=== PATIENT | male | born 1950 | race Caucasian/White ===

== ENCOUNTER 2019-10-19 14:32 | Outpatient (CLI) | payer MEDICARE, SELFPAY ==
--- NOTE | 2019-10-19 | ECHO_ITS ---
Patient Info Name: Francisco Burden Age: 68 years : 1950 Gender: Male Ht: 72 in Wt: 235 lbs BSA: 2.36 m2 HR: 91 bpm BP: 139 / 85 mmHg Heart Rhythm: Paced Technical Quality: Good Exam Date: 10/19/2019 3:12 PM Exam Location: [facility] Patient Status: Outpatient Admit Date: 10/19/2019 Staff Ordering Physician: FelixAlexis MD Special Certificate Dictator: Dianna Goldberg RDCS Attending Provider: FelixAlexis MD Exam Type: CA echo doppler color flow Study Info Indications - hx/o ppm edema Complete two-dimensional, color flow and Doppler transthoracic echocardiogram is performed. Summary 1. Overall good left ventricular systolic function with an estimated ejection fraction of 55-60%. There was abnormal septal motion probably related to pacing artifact as well as hypokinesis of the distal septum and apex which might be related to pacing artifact as well. Normal left ventricular size. Moderate left ventricular hypertrophy is present. Grade 1 diastolic dysfunction is noted. 2. Right ventricular chamber dimension is mildly enlarged with normal systolic function. 3. Linear artifact in right ventricle suggestive of catheter(s), pacemaker lead(s), or ICD lead(s). 4. Left atrial chamber dimension is moderately enlarged. 5. Right atrial chamber dimension is mildly enlarged. 6. Mild pulmonary hypertension, estimated pulmonary arterial systolic pressure is 45 mmHg. 7. There is mild tricuspid valve regurgitation. 8. There is minimal pulmonic valve stenosis. Left Ventricle Left ventricular chamber dimension is normal. Left ventricular systolic function is normal, estimated at 55-60%. There is moderately increased left ventricular wall thickness. Left ventricular septal wall motion is abnormal with septal motion related to pacing. The left ventricular diastolic function is grade I diastolic dysfunction. Right Ventricle Right ventricular chamber dimension is mildly enlarged with normal systolic function. Right ventricular systolic function is normal. Linear artifact in right ventricle suggestive of catheter(s), pacemaker lead(s), or ICD lead(s). Left Atria Left atrial chamber dimension is moderately enlarged. Right Atria Right atrial chamber dimension is mildly enlarged. Aortic Valve The aortic valve is trileaflet. There is mild aortic valve sclerosis. There is no aortic valve stenosis. There is no aortic valve regurgitation. Pulmonic Valve The pulmonic valve is normal. There is minimal pulmonic valve stenosis. There is trace pulmonic regurgitation. Mitral Valve The mitral valve has normal leaflets. There is no mitral valve stenosis. There is trace mitral valve regurgitation. Tricuspid Valve The tricuspid valve leaflets are normal. There is no significant tricuspid valve stenosis. There is mild tricuspid valve regurgitation. Mild pulmonary hypertension, estimated pulmonary arterial systolic pressure is 45 mmHg. Pericardium/Pleural The pericardium appears normal. There is no pericardial effusion. Inferior Vena Cava Not well visualized inferior vena cava with >50% collapse upon inspiration consistent with Empty right atrial pressure, 10 mmHg. Aorta The aortic root size at the sinus of Valsalva is normal. The prox ascending aorta size is normal. Left Ventricular Outflow Tract Name Value Normal
== END 2019-10-19 14:33 | disposition home or self-care (01) ==
PROVIDERS: PCP Internal Medicine; Visit Provider Internal Medicine
DX: R60.9 Edema, unspecified (principal); I51.7 Cardiomegaly; R93.1 Abnormal findings on diagnostic imaging of heart and coronary circulation
CPT/HCPCS: 93306

== ENCOUNTER 2020-12-27 08:09 | Observation (INO) | payer MEDICARE, SELFPAY ==
[2020-12-27] VITALS (15 sets, daily range): BP systolic 104–149; BP diastolic 51–86; PULSE 62–81; RESP 14–21; TEMP 36.3–36.7; O2SAT 96–100; BMI 32.1
--- NOTE | ~2020-12-27 | XR_ITS ---
EXAMINATION: XR chest 1V portable EXAM DATE: 12/27/2020 08:48 INDICATION: Stroke protocol, Transient Alteration Of Awareness . TECHNIQUE: Portable AP frontal chest x-ray was obtained. Comparison is made to prior examination from 08/31/2012. FINDINGS: There is a dual lead pacemaker/AICD seen with leads projecting over the expected locations of the right atrial appendage and right ventricle. Mild cardiomegaly. No confluent consolidation, pne umothorax or pleural effusion suspected. There are bony degenerative changes. IMPRESSION: Cardiomegaly. Reviewed, dictated and finalized at location B. IMPRESSION: Cardiomegaly.
--- NOTE | ~2020-12-27 | US_ITS ---
EXAMINATION: US venous doppler LE EXAM DATE: 12/28/2020 15:56 INDICATION: Bilateral leg edema. TECHNIQUE: Multiple grayscale, color flow and Doppler images of the lower extremity deep venous syste ms bilaterally were obtained and reviewed. There is no prior study for comparison. FINDINGS: Right side: The right common femoral, femoral and profunda veins demonstrate normal color flow, respi ratory variation, augmentation and compressibility. Compressibility, color flow confirmed within the right popliteal, posterior tibial, peroneal, and greater saphenous veins. Left side: The left common femoral, femoral and profunda veins demonstrate normal color flow, respira tory variation, augmentation and compressibility. Compressibility, color flow confirmed within the l eft popliteal, posterior tibial, peroneal, and greater saphenous veins. IMPRESSION: 1. No lower extremity deep venous thrombosis bilaterally. TT Reviewed, dictated and finalized at location B.
--- NOTE | ~2020-12-27 | CT_ITS ---
EXAMINATION: CT thoracic lumbar wo con DATE: 12/28/2020 16:53 INDICATION: Lower extremity paresthesias. TECHNIQUE: Computed tomography (CT) of the thoracic and lumbar spine was performed without intravenou s contrast. Automated exposure control and iterative reconstruction technique were employed. The dose -length product was 2284.99 mGy-cm. COMPARISON: None FINDINGS: CT THORACIC SPINE: There is a 3 mm stone in left kidney. There are old healed right rib fractures. Bone alignment is nor mal. There is mild chronic anterior wedging of many vertebral bodies. There is mildly decreased disc height at T11-T12 and T12-L1. There are bridging endplate osteophytes from T3 to L1, consistent with diffuse idiopathic skeletal hyperostosis (DISH). There is multilevel mild facet joint osteoarthritis. There is severe right facet joint osteoarthritis at T2-T3, T2-T4, T4-T5 and T10-T11. There is multil evel mild neural foraminal stenosis bilaterally. On the right, there is severe neural foraminal steno sis at T2-T3 and moderate neural foraminal stenosis at T3-T4 and T12-L1. No central canal stenosis. CT LUMBAR SPINE: There are chronic bilateral L5 pars defects. There is 13 mm anterolisthesis of L5 on S1. There is mild chronic anterior wedging of L1 vertebral body. There is chronic mild height loss o f L5 vertebral body posteriorly. There is mildly decreased disc height at L1-L2 and L3-L4 and severel y decreased disc height at L5-S1. The following disc levels are specifically discussed: L1-L2: The disc is bulging. There is severe bilateral facet joint osteoarthritis. There is moderate b ilateral neural foraminal stenosis. There is mild central canal stenosis. L2-L3: The disc is bulging. There is severe bilateral facet joint osteoarthritis. There is moderate b ilateral neural foraminal stenosis. There is mild central canal stenosis. L3-L4: The disc is bulging. There is severe bilateral facet joint osteoarthritis. There is moderate b ilateral neural foraminal stenosis. There is moderate central canal stenosis. L4-L5: The disc is bulging. There is severe bilateral facet joint osteoarthritis. There is moderate b ilateral neural foraminal stenosis. There is moderate central canal stenosis. L5-S1: The disc does not extend beyond the endplate margin. There is severe bilateral facet joint ost eoarthritis. There is moderate bilateral neural foraminal stenosis. There is no central canal stenosi s. IMPRESSION: 1. Moderate thoracic spondylosis and severe lumbar spondylosis. 2. Chronic bilateral L5 pars defects with grade 2 anterolisthesis of L5 on S1. 3. DISH. Reviewed, dictated and finalized at location A.
--- NOTE | ~2020-12-27 | CT_ITS ---
EXAMINATION: CTA BRAIN/CAROTID DATE: 12/27/2020 08:31 INDICATION: Stroke protocol. Confusion and prior stroke.. TECHNIQUE: Computed tomographic angiography (CTA) of the head and neck was performed with 100 mL Omni paque-350 intravenous contrast. Multiplanar reconstructions and maximum intensity projection 3D-recon structions of the carotid arteries and of the intracranial arteries were created by the technologist on a separate workstation. Precontrast CT of the head was also obtained. Automated exposure control and iterative reconstruction technique were employed.The dose-length product was 1275.78 mGy-cm. COMPARISON: None. FINDINGS: Carotid arteries: The visualized aortic arch and origin of the great vessels are normal in caliber with no dissection o r appreciable atherosclerotic plaque. There is 0% stenosis of the right carotid bulb relative to norm al distal artery lumen diameter (NASCET criteria). There is minimal atherosclerotic plaque with 0% st enosis of the left carotid bulb relative to normal distal artery lumen diameter. Dual-lead cardiac pa cemaker with lead extending into the inferior vena cava and with lead tips on the mineral resources inspector topogram proj ecting over the right atrium and apex of the right ventricle. Cervical soft tissues are unremarkable. Mild dependent atelectasis in the right upper lobe and superior segment of the right lower lobe. Mil d to moderate cervical spondylosis with chronic mild anterior wedging at C4, C6 and C7. Head: Unchanged small region of encephalomalacia at the left temporal lobe consistent with chronic infarct. No acute intracranial hemorrhage, acute infarction or abnormal extra axial fluid collection. There i s mild scattered white matter hypoattenuation consistent with chronic small vessel ischemic disease. Ventricles are normal and symmetric. No mass/mass effect. The orbits, paranasal sinuses and mastoid air cells are normal. No abnormally enhancing brain lesions. Intracranial arteries Mild atherosclerotic calcifications at the bilateral carotid siphons. There is no hemodynamically sig nificant stenosis in the vertebral, basilar and internal carotid arteries. Vertebral arteries are cod ominant. There are no aneurysms identified. Both A1 and P1 segments are patent. Cerebral arterial a rborization appears symmetric. IMPRESSION: 1. 0% stenosis of the right and left carotid bulbs relative to normal distal artery lumen diameter (N ASCET criteria). 2. Small old infarct at the left temporal lobe. No acute intracranial process. 3. Unremarkable cerebral angiogram with no hemodynamically significant stenosis or aneurysm. 4. Mild scattered white matter hypoattenuation consistent with chronic small vessel ischemic disease. Reviewed, dictated and finalized at location A. IMPRESSION: 1. 0% stenosis of the right and left carotid bulbs relative to normal distal ar oneal lumen diameter (NASCET criteria). 2. Small old infarct at the left temporal lobe. No acute intracranial process. 3. Unremarkable cerebral angiogram with no hemodynamically significant stenosis or aneurysm. 4. Mild scattered white matter hypoattenuation consistent with chronic small ve ssel ischemic disease.
--- NOTE | 2020-12-27 08:12 | ECG_ITS ---
Measurements Intervals [place] Rate: 76 P: 222 CO: 153 QRS: -63 QRSD: 170 T: 114 QT: 426 QTc: 480 Interpretive Statements ATRIAL SENSE- ELECTRONIC VENTRICULAR PACEMAKER VENTRICULAR PREMATURE COMPLEX BASELINE ARTIFACT- I, II, III, AVR, AVL, AVF, V1-V6 NO FURTHER INTERPRETATION IS POSSIBLE ATYPICAL ECG Electronically Signed On 12-27-2020 9:20:36 CDT by Alessandro Bermudez D.O.
--- NOTE | 2020-12-27 08:35 | ED.AMS ---
HPI - Altered Mental Status General Chief Complaint: Altered Mental Status Stated Complaint: Srtoke symptoms Time Seen by Provider: 12/27/20 08:11 Source: patient and EMS Mode of arrival: EMS Limitations: altered mental status History of Present Illness HPI narrative: Patient is a 70-year-old male brought in by EMS due to not acting right and slurred speech that started this morning. EMS states that family called but history is vague, were poor historian. According to EMS, patient was able to stand up and get onto stretcher when he was picked up and that his strength sensation were normal both upper and lower extremities. Blood sugar was in the 120s per EMS. Patient is somnolent but is oriented x3. Patient denies any headache, dizziness, speech or visual disturbance, focal weakness or numbness, chest pain, shortness of breath, abdominal pain, nausea, vomiting, diarrhea, fever or chills. Related Data Home Medications Medication Instructions Recorded Confirmed gabapentin 12/27/20 12/27/20 metoprolol succinate PO 12/27/20 rosuvastatin mg 12/27/20 Allergies Allergy/AdvReac Type Severity Reaction Status Date / Time morphine Allergy Mild RASH Verified 12/27/20 09:46 Review of Systems Review of Systems: All systems reviewed & are unremarkable except as noted in HPI and below Constitutional: Constitutional: Denies body ache(s), Denies chills, Denies excessive sweating, Denies fatigue, Denies fever(s), Denies headache(s), Denies lethargy, Denies malaise and Denies weight loss Eyes: Eyes: Denies blurry vision, Denies change in vision and Denies loss of vision ENT: Denies dizziness, Denies ear discharge, Denies headache(s), Denies lip swelling, Denies epistaxis, Denies nasal congestion, Denies neck pain, Denies throat swelling and Denies tongue swelling Cardiovascular: Cardiovascular: Denies chest pain, Denies chest pain at rest, Denies chest pain with activity, Denies diaphoresis, Denies rapid heart rate, Denies edema, Denies irregular heart rhythm, Denies lightheadedness, Denies palpitations, Denies dyspnea and Denies dyspnea on exertion Respiratory: Respiratory: Denies chest congestion, Denies cough, Denies hemoptysis, Denies dyspnea and Denies dyspnea on exertion Gastrointestinal: Gastrointestinal: Denies abdominal pain, Denies melena, Denies hematochezia, Denies diarrhea, Denies nausea, Denies vomiting and Denies hematemesis Musculoskeletal: Musculoskeletal: Denies abnormal gait, Denies deformity, Denies joint swelling, Denies limited range of motion, Denies neck pain and Denies numbness Neurologic: Denies confusion, Denies dizziness, Denies headache(s), Denies focal weakness, Denies loss of vision, Denies numbness, Denies Other visual disturbances and Denies Sensory deficit (Neuro) Psychiatric: Psychiatric: Denies confusion, Denies depression, Denies auditory hallucinations, Denies homicidal ideation and Denies suicidal ideation Endocrine: Endocrine: Denies cold intolerance, Denies excessive sweating, Denies fatigue, Denies heat intolerance and Denies palpitations Hematologic/Lymphatic: Hematologic/Lymphatic: Denies easy bleeding and Denies easy bruising Allergic/Immunologic: Allergic/Immunologic: Denies lip swelling, Denies throat swelling and Denies tongue swelling PMFSH Comments Past medical history: Hypertension, hyperlipidemia, stroke Family history: Unknown Social history: Non-smoker no EtOH use lives at home with family Exam Const: General: cooperative, comfortable and well developed Nutritional Appearance: well nourished Orientation/consciousness: patient oriented x3 Limitations: physical limitations Other: Lethargic HENMT: Head: normal to inspection, normocephalic and atraumatic Ears: hearing grossly normal bilaterally, TM normal on the right and TM normal on the left General nose exam: Normal external nose present, Normal nares present and No nasal discharge present Face and sinus: normal facial exam Mouth
[2020-12-27] MEDS: NALOXONE HCL 0.4 MG/ML VIAL (08:36)
[2020-12-27 08:41] LABS: Basophils Absolute Auto 0.1 K/mm3 (0.0-0.1); Basophils Percent Auto 0.9 % (0.2-1.2); Eosinophils Absolute Auto 0.2 K/mm3 (0-0.3); Eosinophils Percent Auto 3.7 % (0-4.4); Hematocrit 36.8 % (42.0-52.0); Hemoglobin 11.8 g/dL (14.0-18.0); Immature Granulocyte Absolute 0.01 K/mm3 (0.00-0.031); Immature Granulocyte Percent A 0.2 % (0-0.5); Lymphocytes Absolute Auto 1.47 K/mm3 (0.9-3.2); Lymphocytes Percent Auto 27.2 % (18.3-44.2); Mean Corpuscular HGB Conc 32.1 g/dl (32-36); Mean Corpuscular Hemoglobin 30.9 pg (26-34); Mean Corpuscular Volume 96.3 fl (80-100); Mean Platelet Volume 11.4 fl (7.4-10.4); Monocytes Absolute Auto 0.7 K/mm3 (0.1-0.6); Monocytes Percent Auto 13.5 % (2.6-8.5); Neutrophils Absolute Auto 2.9 K/mm3 (1.3-6.7); Neutrophils Percent Auto 54.5 % (45.5-73.1); Platelet Count Result 175 k/mm3 (150-375); Red Blood Count 3.82 M/mm3 (4.6-6.20); Red Cell Distribution Width 13.8 % (11.5-14.5); White Blood Count 5.4 K/mm3 (4.5-10.0)
[2020-12-27 08:54] LABS: Ethanol < 10 mg/dL (<10)
[2020-12-27 08:55] LABS: Glucose Point of Care 93 mg/dl (65-105)
[2020-12-27 09:21] LABS: Anion Gap 8 mmol/L (8-16); Blood Urea Nitrogen 23 mg/dL (9-20); Calcium 9.5 mg/dL (8.4-10.2); Carbon Dioxide 26 mmol/L (22-30); Chloride 106 mmol/L (98-107); Estimated Glomerular Filt Rate > 60; Glucose 109 mg/dL (65-110); Potassium 4.4 mmol/L (3.4-5.0); Sodium 140 mmol/L (137-145)
[2020-12-27 09:23] LABS: INR 0.9; Prothrombin Time 12.3 Seconds (11.1-14.7)
[2020-12-27 09:24] LABS: Partial Thromboplastin Time 28.7 SECONDS (22.3-36.8)
[2020-12-27 09:33] LABS: Troponin I < 0.012 ng/mL (0.000-0.034)
[2020-12-27] MEDS: ASPIRIN 81 MG CHEWABLE TABLET 324 MG PO (10:51)
--- NOTE | 2020-12-27 11:02 | PC.NURSE ---
1055-PATIENT'S DAUGHTER ON PHONE WITH FAMILY MEMBER. DAUGHTER AND FAMILY MEMBER ON PHONE ADAMANT PATIENT BE ADMITTED TO HOSPITAL. AFTER PATIENT SPOKE TO DAUGHTER, PATIENT AGREES TO STAY IN HOSPITAL. PATIENT STATES IF I GO HOME, I'LL HAVE TO LISTEN TO THEM COMPLAIN . ERP ADVISED OF PATIENT'S DECISION TO BE ADMITTED TO HOSPITAL.
--- NOTE | 2020-12-27 13:30 | ADMGEN ---
This patient, Francisco Burden, was admitted to [facility] Surg Room 322-01. Patient/family oriented to hospital policies and general routines including ID bracelet, bed and alarms, visiting hours, pain management, procedures, bathroom and other care routines, personal items, smoking policy, room service/diet, and visiting hours. Information on how to activate the Rapid Response Team has been discussed. Patient/Family are encouraged to report perceived risks to care and to ask questions if they do not understand what they are told or what they should do.
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
[2020-12-27 14:37] LABS: Alanine Aminotransferase 26 U/L (4-50); Albumin Level 4.2 g/dL (3.5-5.1); Alkaline Phosphatase 85 U/L (38-126); Aspartate Amino Transferase 37 U/L (17-59); Bilirubin,Total 0.5 mg/dL (0.2-1.3); Magnesium 2.1 mg/dL (1.6-2.3)
[2020-12-27 15:06] LABS: Iron 71 ug/dL (49-181)
[2020-12-27 15:19] LABS: Percent Iron Saturation 20 % (20-50)
[2020-12-27 15:46] LABS: Folic Acid > 20.0 ng/mL (2.76->20)
[2020-12-27 16:29] LABS: Free T4 Free Thyroxine Reflex 0.88 ng/dL (0.78-2.19)
[2020-12-27 17:27] LABS: Total Triiodothyronine (T3) 1.41 NG/ML (0.97-1.69)
[2020-12-27] MEDS: GABAPENTIN 100 MG CAPSULE PO (20:57)
[2020-12-27 22:49] LABS: Add Urine Microscopic? YES; Appearance Urine Clear (Clear); Bilirubin Urine Negative (Negative); Blood Urine Negative (Negative); Color Urine Yellow (Yellow); Glucose Urine UA Negative (Negative); Ketones Urine Trace mg/dL (Negative); Leukocyte Esterase Ur Negative LEU/UL (Negative); Mucus Urine Rare /lpf; Nitrate Urine Negative (Negative); Protein Urine 1+ mg/dL (Negative); RBC Urine 0-2 /hpf (0-2); Specific Grav Ur 1.027 (1.001-1.035); Urobilinogen Urine Negative mg/dL (<2.0); WBC Urine 0-3 /hpf
[2020-12-28] VITALS (10 sets, daily range): BP systolic 108–131; BP diastolic 62–78; PULSE 61–110; RESP 14–18; TEMP 36.3–36.9; O2SAT 97–99
[2020-12-28 06:23] LABS: Hematocrit 42.3 % (42.0-52.0); Hemoglobin 13.6 g/dL (14.0-18.0); Mean Corpuscular HGB Conc 32.2 g/dl (32-36); Mean Corpuscular Hemoglobin 30.6 pg (26-34); Mean Corpuscular Volume 95.3 fl (80-100); Mean Platelet Volume 10.9 fl (7.4-10.4); Platelet Count Result 212 k/mm3 (150-375); Red Blood Count 4.44 M/mm3 (4.6-6.20); Red Cell Distribution Width 13.6 % (11.5-14.5); White Blood Count 6.1 K/mm3 (4.5-10.0)
[2020-12-28 06:34] LABS: Anion Gap 9 mmol/L (8-16); Blood Urea Nitrogen 19 mg/dL (9-20); Calcium 9.9 mg/dL (8.4-10.2); Carbon Dioxide 26 mmol/L (22-30); Chloride 104 mmol/L (98-107); Estimated CRCL calculation 104 ml/min; Estimated Glomerular Filt Rate > 60; Glucose 110 mg/dL (65-110); Potassium 3.9 mmol/L (3.4-5.0); Sodium 139 mmol/L (137-145)
[2020-12-28] MEDS: PERFLUTREN LIPID MICROSPHERES 1.5 ML VIAL DILUTED TO 10 ML TOTAL VOLUME IV PUSH (08:59)
[2020-12-28] MEDS: GABAPENTIN 100 MG CAPSULE PO (09:55)
[2020-12-28] MEDS: ROSUVASTATIN 10 MG TABLET PO (09:55)
[2020-12-28] MEDS: METOPROLOL SUCCINATE EXT REL 25 MG TABCR PO (09:55)
[2020-12-28] MEDS: ASPIRIN 81 MG ENTERIC TABLET PO (09:56)
--- NOTE | 2020-12-28 10:51 | PCSTNOTE ---
Please refer to the Bedside Swallow Evaluation in the EMR. Please note, silent aspiration cannot be ruled out at bedside.
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
--- NOTE | 2020-12-28 16:06 | PM.IMPN ---
Progress Note: A&P Assessment and Plan (1) Near syncope: Code(s): R55 - Syncope and collapse Status: Acute Assessment and Plan: By history it sounds as though the patient had a near syncopal episode. May have been due to orthostasis. The patient reports that he was likely dehydrated as he had not been drinking much at home. Subsequent orthostatics negative on admission. JESSY hose initiated. Echo reviewed with normal EF, grade I diastolic dysfunction, and no significant valvular disease. Telemetry reviewed without dysrhythmias. Fall precautions implemented. (2) Hypertension: Code(s): I10 - Essential (primary) hypertension Status: Acute Assessment and Plan: Blood pressures were reviewed and they are generally well controlled. Orthostatic vital signs performed today negative. Continue metoprolol with parameters. (3) Hyperlipidemia: Code(s): E78.5 - Hyperlipidemia, unspecified Status: Acute Assessment and Plan: Continue statin; LFTs within normal limits. (4) Normocytic anemia: Code(s): D64.9 - Anemia, unspecified Status: Acute Assessment and Plan: Hgb 13.6 today. Iron studies, B12, and folate within normal limits. (5) Diastolic dysfunction: Code(s): I51.89 - Other ill-defined heart diseases Status: Chronic Assessment and Plan: Grade I, noted on echo today. Continue metoprolol. At this time, patient is relatively euvolemic with the exception of trace lower extremity edema that he reports is improved with JESSY hose. He had been started on diuretics several months ago per PCP but stopped taking due to frequent urination. Encouraged him to follow up with his PCP regarding restarting this medication. (6) Neuropathy of lower extremity: Code(s): G57.90 - Unspecified mononeuropathy of unspecified lower limb Status: Acute Assessment and Plan: Sounds as though he is suffering from neuropathy of his lower legs bilaterally. Discussed case with Dr. Ascencio. Will proceed with thoracic and lumbar CT. He will then follow up as an outpatient to undergo EMG. Continue with gabapentin 100 mg BID. (7) Urinary frequency: Code(s): R35.0 - Frequency of micturition Status: Acute Assessment and Plan: UA is normal and no signs of urinary retention. Discussed with him trialing Flomax given his complaints of weak stream but he would like to hold off on this and follow up with PCP. (8) Tremor: Code(s): R25.1 - Tremor, unspecified Status: Acute Assessment and Plan: Patient has right upper extremity tremor. He will follow up with Dr. Ascencio as an outpatient for further evaluation of this. Subjective Date/time seen: 12/28/20 16:06 Interval history: Date of service: 12/29/2019 Francisco Burden is a 70-year-old male with history CVA, diastolic dysfunction, hypertension, hyperlipidemia, and paroxysmal atrial flutter who is seen in follow-up after near-syncope. He is feeling well today and is very eager to go home. He offers no complaints. Denies dizziness, lightheadedness, shortness breath, cough, chest pain. He has been able to ambulate independently back and forth to the restroom. He denies any urinary symptoms with the exception of a weak stream which has been ongoing for over a year. He denies headache or body aches. He does complain of some numbness in his lower extremities. Denies saddle anesthesia. He notes swelling in his lower extremities but feels this is unchanged from his baseline. His appetite has been good. No additional concerns at this time. Review of Systems Review of Systems: All systems reviewed & are unremarkable except as noted in HPI and below Exam Narrative: Mr. Burden is a well-nourished, well-appearing 70-year-old male who is sitting in a chair by the bedside. He appears comfortable and is in NARD. Neuro: awake, alert and oriented x4, speech maria a
--- NOTE | 2020-12-28 22:04 | ECHO_ITS ---
Patient Info Name: Francisco Burden Age: 70 years : 1950 Gender: Male Ht: 72 in Wt: 236 lbs BSA: 2.36 m2 HR: 74 bpm BP: 108 / 63 mmHg Heart Rhythm: Paced Exam Date: 12/28/2020 8:24 AM Exam Location: [facility] Pulmonary Patient Status: Outpatient Admit Date: 12/27/2020 Staff Ordering Physician: Neli Tang PA-C [employer] Supervisor: Thor Ayala RDCS, RT Attending Provider: Linh Watson PA-C Referring Physician: Clyde LORD; Exam Type: CA echo dop color flow w con Study Info Indications R55 - Syncope and collapse Complete two-dimensional, color flow and Doppler transthoracic echocardiogram is performed with contrast to opacify the left ventricle and to improve the deliniation of the left ventricle endocardial borders. Summary 1. Left ventricular systolic function is normal, estimated at 55-60%. 2. Left ventricular septal wall motion is abnormal with septal motion related to pacing. 3. The left ventricular diastolic function is grade I diastolic dysfunction. 4. Mild pulmonary hypertension, estimated pulmonary arterial systolic pressure is 42 mmHg. 5. There is mild tricuspid valve regurgitation. Left Ventricle Left ventricular chamber dimension is normal. Left ventricular systolic function is normal, estimated at 55-60%. There is no increased left ventricular wall thickness. Left ventricular septal wall motion is abnormal with septal motion related to pacing. The left ventricular diastolic function is grade I diastolic dysfunction. Right Ventricle Right ventricular chamber dimension is normal. Right ventricular systolic function is normal. Linear artifact in right ventricle suggestive of catheter(s), pacemaker lead(s), or ICD lead(s). Left Atria Left atrial chamber dimension is moderately enlarged. Right Atria Right atrial chamber dimension is mildly enlarged. Linear artifact in the right atrium suggestive of catheter(s), pacemaker lead(s), or ICD lead(s). Aortic Valve The aortic valve is probable trileaflet. There is mild aortic valve sclerosis. There is no aortic valve stenosis. There is no aortic valve regurgitation. Pulmonic Valve The pulmonic valve is not well visualized. There is trace pulmonic regurgitation. Borderline supravalvular stenosis peak velocity 1.9 m/sec mean gradient 14 mmHg. Due to poor visualization unable to further characterize. Mitral Valve The mitral valve has normal leaflets. There is mild mitral valve regurgitation. The mitral valve annulus is mildly calcified. Tricuspid Valve The tricuspid valve leaflets are normal. There is mild tricuspid valve regurgitation. Mild pulmonary hypertension, estimated pulmonary arterial systolic pressure is 42 mmHg. Pericardium/Pleural The pericardium appears epicardial fat pad. There is a trace to small pericardial effusion. Aorta The aortic root size at the sinus of Valsalva is normal. There is mild aortic atherosclerosis. Left Ventricular Outflow Tract Name Value Normal LVOT 2D LVOT Diameter 2.00 cm LVOT Doppler LVOT Peak Gradient 7 mmHg LVOT Mean Gradient 4
--- NOTE | 2020-12-29 07:31 | PM.DS ---
DS: Admitting Diagnosis Admitting Diagnosis Near syncope DS: Discharge Diagnosis Discharge Diagnosis (1) Near syncope: Code(s): R55 - Syncope and collapse Status: Acute Assessment and Plan: History is consistent with near syncopal episode. May have been due to orthostasis. Subsequent orthostatics negative on admission. JESSY hose initiated. Head/neck CT showed evidence of old infarct with no acute intracranial findings and 0% stenosis of bilateral carotid bulbs. Echo reviewed with normal EF, grade I diastolic dysfunction, and no significant valvular disease. Telemetry reviewed without dysrhythmias. Fall precautions implemented. (2) Hypertension: Code(s): I10 - Essential (primary) hypertension Status: Acute Assessment and Plan: Blood pressures were reviewed and they were generally well controlled. Orthostatic vital signs negative. Continue metoprolol with parameters. (3) Hyperlipidemia: Code(s): E78.5 - Hyperlipidemia, unspecified Status: Acute Assessment and Plan: Continue statin; LFTs within normal limits. (4) Normocytic anemia: Code(s): D64.9 - Anemia, unspecified Status: Acute Assessment and Plan: Mild. Hgb 13.6 at time of discharge. Iron studies, B12, and folate within normal limits. (5) Diastolic dysfunction: Code(s): I51.89 - Other ill-defined heart diseases Status: Chronic Assessment and Plan: Grade I, noted on echo. Continue metoprolol. The patient was euvolemic with the exception of trace lower extremity edema that he reports improved with JESSY hose. He had been started on diuretics several months ago per PCP but stopped taking due to frequent urination. Encouraged him to follow up with his PCP regarding restarting this medication. Heart healthy diet encouraged. (6) Neuropathy of lower extremity: Code(s): G57.90 - Unspecified mononeuropathy of unspecified lower limb Status: Acute Assessment and Plan: Sounds as though he is suffering from neuropathy of his lower legs bilaterally. Discussed case with Dr. Ascencio. Thoracic and lumbar spine CT showed moderate thoracic spondylosis and severe lumbar spondylosis as well as grade 2 anterolisthesis of L5 and S1, which may contribute to symptoms. He will follow up as an outpatient to undergo EMG. Continue with gabapentin 100 mg BID. (7) Urinary frequency: Code(s): R35.0 - Frequency of micturition Status: Acute Assessment and Plan: UA is normal and no signs of urinary retention. Discussed with him trialing Flomax given his complaints of weak stream but he would like to hold off on this and follow up with PCP. (8) Tremor: Code(s): R25.1 - Tremor, unspecified Status: Acute Assessment and Plan: Patient has right upper extremity tremor. He will follow up with Dr. Ascencio as an outpatient for further evaluation of this. DS: Summary Hospital Course Hospital Course: Date of admission: 12/27/2020 Date of discharge: 12/28/2020 Francisco Burden is a 70-year-old male with history CVA, diastolic dysfunction, hypertension, hyperlipidemia, and paroxysmal atrial flutter who presented to the emergency department on 12/27/2021 with concerns for a possible stroke. He had lightheadedness and diffuse weakness as well as possibly slurred speech. On presentation to the emergency department, his vital signs were stable, he was afebrile, H&H slightly decreased with additional CBC and BMP unremarkable, EKG with normal sinus rhythm, and head/neck CTA with no acute findings. He was admitted to the hospitalist service for further evaluation and management. Please see above for further details. He was feeling back to his usual state of health and was eager for discharge home. Given overall improvement, he was determined to no longer require inpatient care and was felt to be stable for discharge. We discussed worrisome signs and sy
== END 2020-12-28 18:30 | disposition home or self-care (01) ==
LOC: ANHED 10:37 → ANH3MEDSUR 12:41
PROVIDERS: Physician Assistant; Admitting Provider Internal Medicine; Emergency Provider Emergency Medicine; PCP Internal Medicine; Visit Provider Family Medicine
DX: R55 Syncope and collapse (principal); D64.9 Anemia, unspecified; I11.9 Hypertensive heart disease without heart failure; E78.5 Hyperlipidemia, unspecified; G57.90 Unspecified mononeuropathy of unspecified lower limb; R60.0 Localized edema; R35.0 Frequency of micturition; R25.1 Tremor, unspecified; I44.2 Atrioventricular block, complete; Z95.0 Presence of cardiac pacemaker; Z86.73 Personal history of transient ischemic attack (TIA), and cerebral infarction without residual deficits; Z86.16 Personal history of COVID-19; Z87.891 Personal history of nicotine dependence; Z79.82 Long term (current) use of aspirin; Z79.899 Other long term (current) drug therapy
CPT/HCPCS: 36415; 70496; 70498; 71045; 72128; 72131; 80048; 80076; 80307; 81001; 82607; 82728; 82746; 82948; 83540; 83550; 83735; 84439; 84443; 84480; 84484; 85025; 85027; 85610; 85730; 92610; 93005; 93970; 96374; 99285; A9270; C8929; G0378; J2310; Q9957; Q9967

== ENCOUNTER 2021-01-14 10:38 | Outpatient (CLI) | payer MEDICARE, SELFPAY ==
--- NOTE | 2021-01-15 11:01 | WPDNEUROLOGY ---
Neurology EEG Report General Information Date of Study: 01/14/21 TEST eeg DIAGNOSIS tremors CONDITION OF RECORDING awake and drowsy pacemaker artifacts noted throughout the tracing EEG NUMBER [id number] CLINICAL HISTORY patient reported he came to the hospital a week before symptoms of stroke his back to normal now but he does have a history of tremors EEG DESCRIPTION poorly organized low to medium voltage 8 to 10 hertz per 2nd alpha is seen admixed with low-voltage 15 to 18 hertz per 2nd beta. Bihemispheric intermittent theta activity seen during drowsiness. Bilateral brief periods of sleep seen as well photic stimulation produced normal drive. Hyperventilation not done. Non paroxysmal. Nonfocal. Nonlateralizing. IMPRESSION No significant abnormalities noted
== END 2021-01-14 10:39 | disposition home or self-care (01) ==
LOC: ANHNEURO 10:40
PROVIDERS: PCP Internal Medicine; Visit Provider Internal Medicine
DX: R25.1 Tremor, unspecified (principal)
CPT/HCPCS: 95816

== ENCOUNTER 2021-01-16 07:44 | Emergency (ER) | payer MEDICARE, SELFPAY ==
--- NOTE | ~2021-01-16 | CT_ITS ---
EXAMINATION: CT abdomen pelvis w con EXAM DATE: 01/16/2021 10:12 INDICATION: Nausea, constipation. TECHNIQUE: Spiral CT of the abdomen and pelvis was performed following intravenous injection of 100 m L Omnipaque 350. Axial, coronal and sagittal images of the abdomen and pelvis were reviewed. The do se-length product (DLP) for this examination was 1007.93 mGy-cm. The exposure was tailored according to patient size (auto mA exposure control), and iterative reconstruction (ASIR) was used as addition al dose reduction technique. There is no prior study for comparison. FINDINGS: The liver, spleen, adrenal glands and pancreas are unremarkable. Gallbladder is unremarkab le. No biliary obstruction. Portal and splenic veins are patent. Kidneys enhance symmetrically. T here is no hydronephrosis. The prostate is unremarkable. Small inguinal fat-containing hernias. Th ere are 3 small bladder diverticula. There is no retroperitoneal or pelvic lymphadenopathy. There is mild scattered arteriosclerotic disease. The appendix is normal. There is mild scattered colonic diverticulosis. There is no adjacent inflamm atory change to suggest diverticulitis. The stomach and small bowel are unremarkable. There is expec shyam amount of colonic stool. No free intraperitoneal gas. The heart is normal in size. There are no pericardial or pleural effusions. Right lower lobe scarring/atelectasis. Pacemaker/AICD lead. T horacic diffuse idiopathic skeletal hyperostosis. Chronic L5 spondylolysis with grade 2 anterolisthes is L5 on S1. IMPRESSION: 1. No acute intra-abdominal findings. 2. Mild colonic diverticulosis. 3. Bladder diverticula. 4. Small inguinal hernias. Reviewed, dictated and finalized at location B.
--- NOTE | ~2021-01-16 | XR_ITS ---
EXAMINATION: XR abdomen obstructive series DATE: 01/16/2021 08:44 INDICATION: Nausea. Constipation. TECHNIQUE: Upright and supine views of the abdomen on 3 radiographs were obtained. COMPARISON: None. FINDINGS: There are no dilated loops of bowel. There is a moderate volume of stool in the colon. No f ree intraperitoneal gas. There are pacer wires in the right atrium and right ventricle of the heart. IMPRESSION: 1. Normal bowel gas pattern. Reviewed, dictated and finalized at location A.
[2021-01-16 07:54] VITALS: BP 155/84; PULSE 69; RESP 17; TEMP 36.8; O2SAT 100
--- NOTE | 2021-01-16 08:01 | PC.NURSE ---
daughter at bedside reports Dr. Washington recently d/c pt gabapentin d/t pt reporting high anxiety. pt was on gabapentin for nerve pain thought to be caused by recent TIA.
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
[2021-01-16 09:00] LABS: Basophils Percent Auto 0.9 % (0.2-1.2); Eosinophils Absolute Auto 0.1 K/mm3 (0-0.3); Eosinophils Percent Auto 2.8 % (0-4.4); Hematocrit 37.1 % (42.0-52.0); Hemoglobin 12.5 g/dL (14.0-18.0); Immature Granulocyte Absolute 0.01 K/mm3 (0.00-0.031); Immature Granulocyte Percent A 0.2 % (0-0.5); Lymphocytes Absolute Auto 1.15 K/mm3 (0.9-3.2); Lymphocytes Percent Auto 26.6 % (18.3-44.2); Mean Corpuscular HGB Conc 33.7 g/dl (32-36); Mean Corpuscular Hemoglobin 31.1 pg (26-34); Mean Corpuscular Volume 92.3 fl (80-100); Mean Platelet Volume 12.2 fl (7.4-10.4); Monocytes Absolute Auto 0.5 K/mm3 (0.1-0.6); Monocytes Percent Auto 11.8 % (2.6-8.5); Neutrophils Absolute Auto 2.5 K/mm3 (1.3-6.7); Neutrophils Percent Auto 57.7 % (45.5-73.1); Platelet Count Result 184 k/mm3 (150-375); Red Blood Count 4.02 M/mm3 (4.6-6.20); Red Cell Distribution Width 13.2 % (11.5-14.5); White Blood Count 4.3 K/mm3 (4.5-10.0)
[2021-01-16] MEDS: ONDANSETRON INJ 4 MG/2 ML VIAL IV PUSH ×2 (09:00→10:47)
[2021-01-16] MEDS: SODIUM CHLORIDE 0.9% IV 1,000 ML 999 ML IV CONT (09:01)
--- NOTE | 2021-01-16 09:03 | PC.NURSE ---
pt bladder scanned and there was 100cc found.
[2021-01-16 09:09] LABS: Alanine Aminotransferase 73 U/L (4-50); Albumin Level 4.5 g/dL (3.5-5.1); Alkaline Phosphatase 76 U/L (38-126); Anion Gap 10 mmol/L (8-16); Aspartate Amino Transferase 113 U/L (17-59); Bilirubin,Total 0.7 mg/dL (0.2-1.3); Blood Urea Nitrogen 21 mg/dL (9-20); Calcium 9.7 mg/dL (8.4-10.2); Carbon Dioxide 26 mmol/L (22-30); Chloride 103 mmol/L (98-107); Estimated CRCL calculation 103 ml/min; Estimated Glomerular Filt Rate > 60; Glucose 105 mg/dL (65-110); Lipase 87 U/L (23-300); Potassium 3.9 mmol/L (3.4-5.0); Sodium 139 mmol/L (137-145)
[2021-01-16 09:31] LABS: Add Urine Microscopic? YES; Appearance Urine Cloudy (Clear); Bilirubin Urine Negative (Negative); Blood Urine Negative (Negative); Color Urine Yellow (Yellow); Glucose Urine UA Negative (Negative); Ketones Urine 1+ mg/dL (Negative); Leukocyte Esterase Ur Negative LEU/UL (Negative); Mucus Urine Rare /lpf; Nitrate Urine Negative (Negative); Protein Urine Negative (Negative); Specific Grav Ur 1.014 (1.001-1.035); Squamous Epithelial Cell Urine Few /hpf (Few); Urobilinogen Urine Negative mg/dL (<2.0); WBC Urine 0-3 /hpf
[2021-01-16 09:51] VITALS: BP 152/56; PULSE 66; RESP 16; O2SAT 96
--- NOTE | 2021-01-16 10:08 | PC.NURSE ---
pt out of dept for imaging
[2021-01-16 10:49] VITALS: BP 150/76; PULSE 97; RESP 20; O2SAT 100
[2021-01-16 11:35] VITALS: BP 147/66; PULSE 82
[2021-01-16 11:36] VITALS: BP 127/83; BP 145/84; PULSE 85; PULSE 87
[2021-01-16 12:26] VITALS: BP 155/75; PULSE 77; RESP 16; O2SAT 98
[2021-01-17 17:06] LABS: SARS-CoV-2 RNA PCR Negative
== END 2021-01-16 12:26 | disposition home or self-care (01) ==
PROVIDERS: Emergency Provider General Practice; PCP Internal Medicine
DX: K59.00 Constipation, unspecified (principal); R11.0 Nausea; Z20.822 Contact with and (suspected) exposure to COVID-19; E78.5 Hyperlipidemia, unspecified; I10 Essential (primary) hypertension; Z95.0 Presence of cardiac pacemaker; Z86.16 Personal history of COVID-19; Z86.73 Personal history of transient ischemic attack (TIA), and cerebral infarction without residual deficits; Z87.891 Personal history of nicotine dependence; K57.90 Diverticulosis of intestine, part unspecified, without perforation or abscess without bleeding; K40.90 Unilateral inguinal hernia, without obstruction or gangrene, not specified as recurrent
CPT/HCPCS: 36415; 74019; 74177; 80053; 81001; 83690; 85025; 96361; 96374; 96375; 99284; C9803; J2405; J7030; Q9967; U0003; U0005

== ENCOUNTER 2022-11-07 00:42 | Day surgery (SDC) | payer MEDICARE, SELFPAY ==
[2022-11-07] VITALS (7 sets, daily range): BP systolic 137–156; BP diastolic 76–84; PULSE 65–73; RESP 14–19; TEMP 36.6; O2SAT 93–97; BMI 26.9
[2022-11-07 08:05] LABS: Basophils Percent Auto 0.8 % (0.2-1.2); Eosinophils Absolute Auto 0.2 K/mm3 (0-0.3); Eosinophils Percent Auto 3.2 % (0-4.4); Hematocrit 36.7 % (42.0-52.0); Hemoglobin 12.1 g/dL (14.0-18.0); Immature Granulocyte Absolute 0.01 K/mm3 (0.00-0.031); Immature Granulocyte Percent A 0.2 % (0-0.5); Lymphocytes Absolute Auto 1.35 K/mm3 (0.9-3.2); Lymphocytes Percent Auto 28.5 % (18.3-44.2); Mean Corpuscular Hemoglobin 30.8 pg (26-34); Mean Corpuscular Volume 93.4 fl (80-100); Mean Platelet Volume 11.3 fl (7.4-10.4); Monocytes Absolute Auto 0.5 K/mm3 (0.1-0.6); Neutrophils Absolute Auto 2.7 K/mm3 (1.3-6.7); Neutrophils Percent Auto 56.3 % (45.5-73.1); Platelet Count Result 173 k/mm3 (150-375); Red Blood Count 3.93 M/mm3 (4.6-6.20); Red Cell Distribution Width 14.2 % (11.5-14.5); White Blood Count 4.7 K/mm3 (4.5-10.0)
[2022-11-07 08:16] LABS: Prothrombin Time 13.1 Seconds (11.1-14.7)
[2022-11-07 08:31] LABS: Anion Gap 3 mmol/L (8-16); Blood Urea Nitrogen 26 mg/dL (9-20); Calcium 9.7 mg/dL (8.4-10.2); Carbon Dioxide 29 mmol/L (22-30); Chloride 105 mmol/L (98-107); Estimated CRCL calculation 88 ml/min; Estimated Glomerular Filt Rate > 60; Glucose 99 mg/dL (65-110); Potassium 4.5 mmol/L (3.4-5.0); Sodium 137 mmol/L (137-145)
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
--- NOTE | 2022-11-07 10:28 | WPDCARDPROC ---
Cardiac Cath Procedure Note Date of procedure:: 11/07/22 Performing physician:: Alexis Barrios MD Indication:: complete heart block with permanent pacemaker at [facility] Brief clinical history:: this is a 72-year-old man with complete heart block. For this he received a permanent dual-chamber pacemaker implant in 2012. The device is functioning normally but is now at [facility] he is admitted to the hospital for elective generator change as an outpatient Procedure Procedure performed:: placement of temporary transvenous pacemaker from femoral vein explantation of depleted pulse generator implantation of new dual-chamber pulse generator using existing chronically implanted leads Sedation/Medication given:: fentanyl 25 mg Versed 2 mg Access site:: right femoral vein chronically implanted left anterior chest wall pocket Estimated blood loss:: minimal Procedure note:: patient was brought to the cardiac catheterization lab in the postabsorptive state the right femoral triangle was prepped draped in the normal fashion. 1% lidocaine was infiltrated locally for anesthesia. Using the modified Seldinger technique the femoral vein was punctured and a 6 Montenegrin vascular sheath was placed. After this I advanced a balloon tipped temporary pacing catheter in the venous circulation through the right atrium across the tricuspid valve into the RV. It was placed up against the interventricular septum superior to the chronically implanted ventricular lead. Appropriate pacing threshold was demonstrated. This was then programmed at a backup rate of 40 beats per minute. Following this we broke scrub all the thoracic chronically implanted pocket area was prepped and draped in a sterile fashion. the chronically implanted pocket was easily identified and I infiltrated 20 cc of 1% lidocaine over the pocket for local anesthesia. I then used the PlasmaBlade to create an incision just below the original incision and the plasma blade was then used to separate the subcutaneous tissue as well as open the fibrous capsule. Electrocautery was used with the PlasmaBlade to provide cutaneous hemostasis as well. The chronically implanted pacemaker device in the attached leads were then removed the pocket was visually unremarkable in appearance. The torque wrench was used to disconnect the leads from the device. The patient then was being paced at 40 beats per minute with the temporary lead. The pocket was irrigated with antibiotic infused saline. The new pacemaker device was then connected to the leads using the torque wrench and the assembly was placed back into the chronically implanted pocket. This was then closed in layers using 3-0 Vicryl in an interrupted fashion for the subcutaneous tissue and 4-0 Vicryl in a running subcuticular fashion for the skin. The wound was dressed with an Aquacel dressing. The temporary pacemaker was then removed from the femoral vein and the venous sheath was removed in the laborer high density press as well. Procedure was well tolerated and uncomplicated. Findings:: The explanted device is a Biotronik dual-chamber pacemaker model Evia DR-T serial number [id number]. Device originally implanted August 30, 2012 the new pacemaker generator is a Biotronik dual-chamber pacemaker model Edora 8 DR-T [id number]. Serial number [id number]. device is programmed in the DDD / CLS mode lower rate limit 60 upper rate limit 130. The chronically implanted atrial lead is a Biotronik Setrox S 45 serial 2. [id number]. Implanted on 08/30/2012. P-waves are sensed at 2.2 mV threshold 0.6 volt at 0.4 millisecond impedance 565 Ohms. Chronically implanted ventricular lead is a Biotronik Setrox S53 ProMRI serial number [id number]. there are no intrinsic R waves to sense. Threshold is 1.4 volts at 0.4 millisecond impedance 702 Ohms. Conclusion:: 1. Successful placement of transvenous pacing from the right femoral vein for protecting the cardiac rhythm during generator c
== END 2022-11-07 12:50 | disposition home or self-care (01) ==
PROVIDERS: PCP Internal Medicine; Visit Provider Specialist
PROC: 0JPT0PZ Removal of Cardiac Rhythm Related Device from Trunk Subcutaneous Tissue and Fascia, Open Approach (ICD-10-PCS; CPT 33228; principal; 2022-11-07 09:00)
DX: Z45.010 Encounter for checking and testing of cardiac pacemaker pulse generator [battery] (principal); I44.2 Atrioventricular block, complete; I11.9 Hypertensive heart disease without heart failure; I48.92 Unspecified atrial flutter; E78.5 Hyperlipidemia, unspecified; Z86.73 Personal history of transient ischemic attack (TIA), and cerebral infarction without residual deficits; Z87.891 Personal history of nicotine dependence
CPT/HCPCS: 33228; 36415; 80048; 85025; 85610; C1785; C1894; J0690; J2250; J3010; J7040

== ENCOUNTER 2023-12-21 10:33 | Outpatient (CLI) | payer MEDICARE, SELFPAY ==
[2023-12-21 11:22] LABS: Eosinophils Absolute Auto 0.1 K/mm3 (0-0.3); Eosinophils Percent Auto 2.4 % (0-4.4); Hematocrit 36.8 % (42.0-52.0); Hemoglobin 12.1 g/dL (14.0-18.0); Immature Granulocyte Absolute 0.01 K/mm3 (0.00-0.031); Immature Granulocyte Percent A 0.3 % (0-0.5); Lymphocytes Absolute Auto 1.15 K/mm3 (0.9-3.2); Lymphocytes Percent Auto 30.1 % (18.3-44.2); Mean Corpuscular HGB Conc 32.9 g/dl (32-36); Mean Corpuscular Hemoglobin 30.8 pg (26-34); Mean Corpuscular Volume 93.6 fl (80-100); Mean Platelet Volume 11.7 fl (7.4-10.4); Monocytes Absolute Auto 0.5 K/mm3 (0.1-0.6); Monocytes Percent Auto 12.6 % (2.6-8.5); Neutrophils Absolute Auto 2.1 K/mm3 (1.3-6.7); Neutrophils Percent Auto 53.6 % (45.5-73.1); Platelet Count Result 167 k/mm3 (150-375); Red Blood Count 3.93 M/mm3 (4.6-6.20); Red Cell Distribution Width 13.9 % (11.5-14.5); White Blood Count 3.8 K/mm3 (4.5-10.0)
[2023-12-21 11:33] LABS: Alanine Aminotransferase 16 U/L (6-50); Albumin Level 4.4 g/dL (3.5-5.1); Alkaline Phosphatase 74 U/L (38-126); Anion Gap 11 mmol/L (4-12); Aspartate Amino Transferase 25 U/L (17-59); Bilirubin,Total 0.8 mg/dL (0.2-1.3); Blood Urea Nitrogen 22 mg/dL (9-20); Calcium 9.5 mg/dL (8.4-10.2); Carbon Dioxide 29 mmol/L (22-30); Chloride 100 mmol/L (98-107); Cholesterol 125 mg/dL (0-200); Estimated Glomerular Filt Rate > 60; Glucose 91 mg/dL (65-110); HDL Direct 56 mg/dL; Potassium 3.8 mmol/L (3.4-5.0); Sodium 140 mmol/L (137-145); Triglycerides 48 mg/dL (<150)
[2023-12-21 11:44] LABS: LDL Cholesterol Direct 53 mg/dL
== END 2023-12-21 10:34 | disposition home or self-care (01) ==
LOC: ANHLAB 10:38
PROVIDERS: PCP Internal Medicine; Visit Provider Internal Medicine
DX: I10 Essential (primary) hypertension (principal)
CPT/HCPCS: 36415; 80053; 80061; 85025

== ENCOUNTER 2024-04-14 11:13 | Outpatient (CLI) | payer MEDICARE, SELFPAY ==
[2024-04-14 11:57] LABS: Basophils Absolute Auto 0.1 K/mm3 (0.0-0.1); Eosinophils Absolute Auto 0.1 K/mm3 (0-0.3); Eosinophils Percent Auto 2.9 % (0-4.4); Hematocrit 36.5 % (42.0-52.0); Lymphocytes Absolute Auto 1.24 K/mm3 (0.9-3.2); Lymphocytes Percent Auto 25.8 % (18.3-44.2); Mean Corpuscular HGB Conc 32.9 g/dl (32-36); Mean Corpuscular Hemoglobin 30.8 pg (26-34); Mean Corpuscular Volume 93.8 fl (80-100); Mean Platelet Volume 10.8 fl (7.4-10.4); Monocytes Absolute Auto 0.5 K/mm3 (0.1-0.6); Monocytes Percent Auto 10.8 % (2.6-8.5); Neutrophils Absolute Auto 2.9 K/mm3 (1.3-6.7); Neutrophils Percent Auto 59.5 % (45.5-73.1); Platelet Count Result 180 k/mm3 (150-375); Red Blood Count 3.89 M/mm3 (4.6-6.20); Red Cell Distribution Width 14.2 % (11.5-14.5); White Blood Count 4.8 K/mm3 (4.5-10.0)
[2024-04-14 12:23] LABS: Alanine Aminotransferase 14 U/L (6-50); Albumin Level 4.4 g/dL (3.5-5.1); Alkaline Phosphatase 77 U/L (38-126); Anion Gap 4 mmol/L (4-12); Aspartate Amino Transferase 23 U/L (17-59); Bilirubin,Total 0.9 mg/dL (0.2-1.3); Blood Urea Nitrogen 19 mg/dL (9-20); Calcium 9.7 mg/dL (8.4-10.2); Carbon Dioxide 31 mmol/L (22-30); Chloride 107 mmol/L (98-107); Cholesterol 144 mg/dL (0-200); Estimated Glomerular Filt Rate > 60; Glucose 98 mg/dL (65-110); HDL Direct 65 mg/dL; Potassium 4.4 mmol/L (3.4-5.0); Sodium 142 mmol/L (137-145); Triglycerides 48 mg/dL (<150)
[2024-04-14 12:34] LABS: LDL Cholesterol Direct 56 mg/dL
== END 2024-04-14 11:14 | disposition home or self-care (01) ==
LOC: ANHLAB 11:16
PROVIDERS: PCP Internal Medicine; Visit Provider Internal Medicine
DX: I10 Essential (primary) hypertension (principal)
CPT/HCPCS: 36415; 80053; 80061; 85025

== ENCOUNTER 2024-05-10 13:07 | Emergency (ER) | payer MEDICARE, SELFPAY ==
--- NOTE | ~2024-05-10 | XR_ITS ---
EXAMINATION: XR shoulder LT min 2V DATE: 05/10/2024 13:32 INDICATION: Left shoulder dislocation. TECHNIQUE: 4 views of left shoulder were obtained. COMPARISON: None. FINDINGS: There is superior subluxation of humeral head with narrowing of the subacromial space, cons istent with rotator cuff tear. No acute fracture. There are old healed left rib fractures. There is s evere osteoarthritis of glenohumeral joint and acromioclavicular joint. A left chest pacer is noted. IMPRESSION: 1. Severe polyarticular osteoarthritis. 2. Left rotator cuff tear. Reviewed, dictated and finalized at location A. TURNER MACHINE OPERATOR
[2024-05-10 13:09] VITALS: BP 152/70; PULSE 80; RESP 18; TEMP 36.2; O2SAT 100
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
== END 2024-05-10 15:05 | disposition home or self-care (01) ==
PROVIDERS: Emergency Provider Emergency Medicine; PCP Internal Medicine
DX: M75.102 Unspecified rotator cuff tear or rupture of left shoulder, not specified as traumatic (principal); E78.5 Hyperlipidemia, unspecified; I44.2 Atrioventricular block, complete; Z86.73 Personal history of transient ischemic attack (TIA), and cerebral infarction without residual deficits; X58.XXXA Exposure to other specified factors, initial encounter; I10 Essential (primary) hypertension
CPT/HCPCS: 73030; 99283

== ENCOUNTER 2024-08-18 11:37 | Outpatient (CLI) | payer MEDICARE, SELFPAY ==
[2024-08-18 12:11] LABS: Basophils Percent Auto 0.9 % (0.2-1.2); Eosinophils Absolute Auto 0.1 K/mm3 (0-0.3); Eosinophils Percent Auto 2.8 % (0-4.4); Hematocrit 36.7 % (42.0-52.0); Hemoglobin 11.7 g/dL (14.0-18.0); Immature Granulocyte Absolute 0.02 K/mm3 (0.00-0.031); Immature Granulocyte Percent A 0.5 % (0-0.5); Lymphocytes Absolute Auto 1.19 K/mm3 (0.9-3.2); Mean Corpuscular HGB Conc 31.9 g/dl (32-36); Mean Corpuscular Hemoglobin 30.2 pg (26-34); Mean Corpuscular Volume 94.8 fl (80-100); Mean Platelet Volume 10.9 fl (7.4-10.4); Monocytes Absolute Auto 0.5 K/mm3 (0.1-0.6); Monocytes Percent Auto 11.1 % (2.6-8.5); Neutrophils Absolute Auto 2.4 K/mm3 (1.3-6.7); Neutrophils Percent Auto 56.7 % (45.5-73.1); Platelet Count Result 168 k/mm3 (150-375); Red Blood Count 3.87 M/mm3 (4.6-6.20); White Blood Count 4.3 K/mm3 (4.5-10.0)
[2024-08-18 12:26] LABS: Alanine Aminotransferase 17 U/L (6-50); Albumin Level 4.5 g/dL (3.5-5.1); Alkaline Phosphatase 91 U/L (38-126); Anion Gap 9 mmol/L (4-12); Aspartate Amino Transferase 24 U/L (17-59); Bilirubin,Total 0.8 mg/dL (0.2-1.3); Blood Urea Nitrogen 24 mg/dL (9-20); Calcium 9.5 mg/dL (8.4-10.2); Carbon Dioxide 29 mmol/L (22-30); Chloride 104 mmol/L (98-107); Cholesterol 137 mg/dL (0-200); Estimated Glomerular Filt Rate > 60; Glucose 100 mg/dL (65-110); HDL Direct 63 mg/dL; Potassium 3.9 mmol/L (3.4-5.0); Sodium 142 mmol/L (137-145); Triglycerides 40 mg/dL (<150)
[2024-08-18 12:37] LABS: LDL Cholesterol Direct 51 mg/dL
--- OUTSIDE RECORDS SUMMARY | 2024-08-18 13:07 | XMS_ITS | Encounter Summary ---
Author Organization [facility] Address [address] [place] [id number] Care Team Providers Care Fax Machine Operator Name Role Phone Alexis Washington MD Primary Care Provider [phone] Encounter Details Date Type Department Care Team (Late st Contact Info) Description 08/19/2016 Orders Only [facility] ProviderNancy MD [address] [place], [place] [id number] Social History Tobacco Use Types Packs/Day Years Used Date Smoking Tobacco: Former Cigarettes Q uit: 04/27/1980 Alcohol Use Standard Drinks/Week Comments No 0 (1 standard drink = 0.6 oz pur e alcohol) Sex and Gender Information Value Date Recorded Sex Assigned at Not on file Legal Sex Male 12:34 AM GARNETT [employer]EDER Gender Identity Not on file Sexual Orientation Not on file documented as of this encounter Plan of Treatment Not on file documented as of this encounter Procedures Procedure Name Priority Date/Time Associated Diagnosis Comments CARDIOLOGY REPORT 08/19/2016 documented in this encounter Results * CARDIOLOGY REPORT (08/19/2016) Anatomical Region Laterality Modality Other Narrative 08/19/2016 Ordered by an unspecified provider. Historical Provider [facility] ZEYNEP RIVAS Final Result documented in this encounter Visit Diagnoses Not on filedocumented in this encounter Care Teams Fax Machine Operator Relationship Specialty Start Date End Date Alexis Washington MD PCP - General 01/11/15 documented as of this encounter
--- OUTSIDE RECORDS SUMMARY | 2024-08-18 13:07 | XMS_ITS | Referral Summary ---
Author Organization [facility] [place], [place] Address [address] [place] [phone] Care Team Providers Care Account Support Analyst Name Role Phone Alexis Washington MD Primary Care Provider [phone] Encounters Date Type Department Care Team Description 06/21/2024 Orders Only [facility] [address] [place] [address] [place] [phone] Alexis Barrios MD Cardiac pacemaker in situ (Primary Dx); Complete heart block (HCC) 06/21/2024 9:15 AM TREATMENT MANAGER Ancillary Procedure [facility] [address] [place] [address] [place] [phone] Cardiac pacemaker in situ [Z95.0] (Primary Dx); Complete heart block (HCC); SSS (sick sinus syndrome) (HCC); Ventricular tachycardia (HCC) 06/20/2024 3:23 PM TREATMENT MANAGER - 06/20/2024 11:59 PM TREATMENT MANAGER Hospital Encounter [facility] [address] [place] [phone] Rotator cuff syndrome of left shoulder Discharge Disposition: Discharge to home or self care 06/20/2024 3:30 PM TREATMENT MANAGER Office Visit [facility] Orthopaedic Surgery [address] [place] [address] Dustin Banks MD 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); Rotator cuff syndrome of left shoulder; Left shoulder pain, unspecified chronicity; Tear of left rotator cuff, unspecified tear extent, unspecified whether traumatic; Other specific arthropathies, not elsewhere classified, left shoulder 06/20/2024 11:30 AM TREATMENT MANAGER Office Visit [facility] Card[facility] [address] [place] [address] Alexis Barrios MD Complete heart block (HCC) (Primary Dx); Cardiac pacemaker in situ; Need for lipid screening 06/16/2024 6:26 PM TREATMENT MANAGER - 06/16/2024 11:59 PM TREATMENT MANAGER Hospital Encounter [facility] [address] [place] [address] Discharge Disposition: Discharge to home or self care from Last 3 Months Allergies Active Allergy Reactions Criticality Noted Date Comments Morphine Medications aspirin 325 mg tablet take 1 Tablet by oral route every day 0 0 3 Active Additional Information Patient not taking.Reported on 06/20/2024 rosuvastatin (CRESTOR) 10 mg tablet take 1 tablet by oral route every day 0 0 6 Active furosemide (LASIX) 20 mg tablet furosemide 20 mg tablet Active metoprolol XL (TOPROL-XL) 25 mg extended release tablet TAKE 1 TABLET(25 MG) BY MOUTH DAILY 90 tablet 1 3 Active Active Problems Problem Noted Date Diagnosed Date Ventricular tachycardia 03/20/2020 Complete heart block 03/17/2019 Cardiac pacemaker in situ 01/28/2017 Overview (11/07/2022): Biotronik Edora Dual Pacemaker Dx; AV Block, SSS, Afib DOI 11/07/2022-Sophie. Chronic leads 08/30/2012. Biotronik remote home monitor Q3 mo, Office pacer checks Q1 yr. Social History Tobacco Use Types Packs/Day Years Used Date Smoking Tobacco: Former Smokeless Tobacco: Never Tobacco Cessation:Counseling Given: Not Answered Alcohol Use Standard Drinks/Week Comments No 0 (1 standard drink = 0.6 oz pur e alcohol) Sex and Gender Information Value Date Recorded Sex Assigned at Not on file Legal Sex Male 12:34 AM TREATMENT MANAGER Gender Identity Not on file Sexual Orientation Not on file Last Filed Vital Signs Vital Sign Reading Time Taken Comments Blood Pressure 128/80 06/20/2024 11:23 AM TREATMENT MANAGER Pulse 88 06/20/2024 11:23 AM TREATMENT MANAGER Temperature 36.3 C (97.3 F) 04/12/2020 10:10 AM TREATMENT MANAGER Respiratory Rate 18 01/28/2017 9:34 AM CDT Oxygen Saturation 98% 06/20/2024 11:23 AM TREATMENT MANAGER Inhaled Oxygen Concentration - - Weight 81.6 kg (180 lb) 06/20/2024 3:14 PM TREATMENT MANAGER Height 182.9 cm (6') 06/20/2024 3:14 PM TREATMENT MANAGER Body Mass Index 24.41 06/20/2024 3:14 PM TREATMENT MANAGER Plan of Treatment Not on file Medical Devices Implanted Type Area Catalyst Unit Operator Device Identifier Shelf Expiration Date Model / Serial / Lot Pacemaker-2012 Implanted:09/2012 by Alexis Barrios MD (Quantity not on file) Pacemaker Chest [employer] AV Block, SSS, Afib LIBBY BALDWIN / [id number] / Procedures Procedure Name Priority Date/Time Associated Diagnosis Comments DEVICE CHECK - REMOTE Routine 06/24/2024 9:56 AM TREATMENT MANAGER Complete heart block (HCC) SSS (sick sinus syndrome) (HCC) Ventricular tachycardia (HCC) POCT LIPID PANEL Routine 06/20/2024 4:03 PM TREATMENT MANAGER Need for lipid screening XR SHOULDER LEFT 2 OR MORE VIEWS Schedule Routine, Read Routine (OP Routine) 06/20/2024 3:35 PM TREATMENT MANAGER Rotator cuff syndrome of left shoulder XR TRANSFER OF OUTSIDE FILMS Routine 06/16/2024 6:26 PM TREATMENT MANAGER from Last 3 Months Results * DEVICE CHECK - REMOTE (06/24/2024 9:56 AM TREATMENT MANAGER) Anatomical Region Laterality Modality Other Narrative 07/01/2024 8:33 AM TREATMENT MANAGER Biotronik Edora Dual Pacemaker Dx; AV Block, SSS, Afib DOI 11/07/2022-Sophie. Chronic leads 08/30/2012. Biotronik remote home monitor Q3 mo, Office pacer checks Q1 yr. Pacemaker Dependent. Routine DDD Pacemaker Remote. Transmission attached. Battery status-Ok, 85% remaining to DANITA. Stable lead impedances, pacing and sensing thresholds. Presenting rhythm: -DIESEL MECHANIC HELPER. AP-73 %, DIESEL MECHANIC HELPER-97 %. No AT/AF episodes noted. No Ventricular arrhythmias detected. Medication: ASA 325 mg, Toprol XL. Office pacemaker f/u 03/15/2025. Biotronik remote f/u 09/27/2024. Cherry Alarcon, RN Alexis Barrios MD [facility] PROC EDURES Final Result * POCT lipid panel (06/20/2024 4:03 PM TREATMENT MANAGER) Cholesterol, POC 129 mg/dL HDL, POC 46 mg/dL Triglycerides, POC 169 mg/dL LDL Cholesterol POC 50 mg/dL Chol/HDL Ratio, POC 1.1 Non-HDL Cholesterol, POC 84 mg/dL Cholesterol Total, POC 129 mg/dL Capillary blood 06/20/2024 4 :03 PM TREATMENT MANAGER Alexis Barrios MD POINT OF CARE TEST ORDER ALEXANDRA Final Result * XR Shoulder Left 2+ View (06/20/2024 3:35 PM TREATMENT MANAGER) Anatomical Region Laterality Modality Upper Extremities, Shoulder Left Comp uted Radiography 06/20/2024 3:52 PM TREATMENT MANAGER Impressions 06/20/2024 3:52 PM TREATMENT MANAGER 1. Unchanged chronic left rotator cuff tear with superior escape of the humeral head, acromial undersurface remodeling, and moderate cuff tear arthropathy. 2. Mildly displaced left 4th-6th posterior rib fractures. Electronically signed by: Jalil Renteria M.D. Narrative 06/20/2024 3:52 PM TREATMENT MANAGER EXAMINATION: XR SHOULDER LEFT 2 OR MORE VIEWS HISTORY: Left rotator cuff tear FINDINGS: 4 view examination of the left shoulder is compared with a study from 05/10/2024. There is unchanged superior escape of the humeral head with subacromial narrowing and acromial undersurface remodeling, due to chronic rotator cuff tear. There is moderate rotator cuff tear arthropathy involving the glenohumeral and acromioclavicular joints. There is no fracture. There is a dual-lead left-sided pacemaker. There are mildly displaced fractures of the left posterior 4th, 5th, and 6th ribs. Procedure Note Jalil Renteria MD - 06/20/2024 EXAMINATION: XR SHOULDER LEFT 2 OR MORE VIEWS HISTORY: Left rotator cuff tear FINDINGS: 4 view examination of the left shoulder is compared with a study from 05/10/2024. There is unchanged superior escape of the humeral head with subacromial narrowing and acromial undersurface remodeling, due to chronic rotator cuff tear. There is moderate rotator cuff tear arthropathy involving the glenohumeral and acromioclavicular joints. There is no fracture. There is a dual-lead left-sided pacemaker. There are mildly displaced fractures of the left posterior 4th, 5th, and 6th ribs. IMPRESSION: 1. Unchanged chronic left rotator cuff tear with superior escape of the humeral head, acromial undersurface remodeling, and moderate cuff tear arthropathy. 2. Mildly displaced left 4th-6th posterior rib fractures. Electronically signed by: Jalil Renteria M.D. Dustin Banks MD IMG XR PROCEDURES Final Result * XR Outside Reference (06/16/2024 6:26 PM TREATMENT MANAGER) Impressions [facility] - 06/16/2024 6:26 PM TREATMENT MANAGER These images are for Reference purposes only and have not been reviewed by [facility]. There will be no report generated by a [facility] Radiologist. Narrative [facility] - 06/16/2024 6:26 PM TREATMENT MANAGER EXAMINATION: Images For Reference Purposes Only Dustin Banks MD IMG XR PROCEDURES Final Result [facility] from Last 3 Months Insurance [facility] MEDICARE MEDICARE [facility] MEDICARE [facility] Care Teams Account Support Analyst Relationship Specialty Start Date End Date Alexis Washington MD PCP - General 01/11/15
--- OUTSIDE RECORDS SUMMARY | 2024-08-18 13:07 | XMS_ITS | Encounter Summary ---
Author Organization [facility] Address [address] [place] [id number] Care Team Providers Care Hook And Eye Machine Operator Name Role Phone Alexis Washington MD Primary Care Provider [phone] Encounter Details Date Type Department Care Team (Late st Contact Info) Description 05/13/2016 Orders Only [facility] ProviderNancy MD [address] [place], [place] [id number] Social History Tobacco Use Types Packs/Day Years Used Date Smoking Tobacco: Former Cigarettes Q uit: 04/27/1980 Alcohol Use Standard Drinks/Week Comments No 0 (1 standard drink = 0.6 oz pur e alcohol) Sex and Gender Information Value Date Recorded Sex Assigned at Not on file Legal Sex Male 12:34 AM REHABILITATOR Gender Identity Not on file Sexual Orientation Not on file documented as of this encounter Plan of Treatment Not on file documented as of this encounter Procedures Procedure Name Priority Date/Time Associated Diagnosis Comments CARDIOLOGY REPORT 05/13/2016 documented in this encounter Results * CARDIOLOGY REPORT (05/13/2016) Anatomical Region Laterality Modality Other Narrative 05/13/2016 Ordered by an unspecified provider. Historical Provider [facility] ZEYNEP RIVAS Final Result documented in this encounter Visit Diagnoses Not on filedocumented in this encounter Care Teams Hook And Eye Machine Operator Relationship Specialty Start Date End Date Alexis Washington MD PCP - General 01/11/15 documented as of this encounter
--- OUTSIDE RECORDS SUMMARY | 2024-08-18 13:07 | XMS_ITS | Clinical Summary ---
Author Organization [facility] Address [address] [place] [phone] Care Team Providers Care Windmill Mechanic Name Role Phone Alexis Washington MD Primary Care Provider [phone] Allergies Active Allergy Reactions Criticality Noted Date [...] Q3 mo, Office pacer checks Q1 yr. Encounters Date Type Department Care Team Description 06/21/2024 9:15 AM CAR REPAIRER HELPER Ancillary Procedure [facility] Cardiology [address], [place] [address] Cardiac pacemaker in situ [Z95.0] (Primary Dx); Complete heart block (HCC); SSS (sick sinus syndrome) (HCC); Ventricular tachycardia (HCC) 06/21/2024 Orders Only [facility] [address], [place] [address] Alexis Barriso MD Cardiac pacemaker in situ (Primary Dx); Complete heart block (HCC) 06/20/2024 3:30 PM CAR REPAIRER HELPER Office Visit [facility] Orthopaedic Surgery [address] 2[address] [place] [address] Dustin Banks MD 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); Rotator cuff syndrome of left shoulder; Left shoulder pain, unspecified chronicity; Tear of left rotator cuff, unspecified tear extent, unspecified whether traumatic; Other specific arthropathies, not elsewhere classified, left shoulder 06/20/2024 3:23 PM CAR REPAIRER HELPER - 06/20/2024 11:59 PM CAR REPAIRER HELPER Hospital Encounter [facility] [address] [place] [address] Rotator cuff syndrome of left shoulder Discharge Disposition: Discharge to home or self care 06/20/2024 11:30 AM CAR REPAIRER HELPER Office Visit [facility] Cardiology [address] [place] [address] Alexis Barrios MD Complete heart block (HCC) (Primary Dx); Cardiac pacemaker in situ; Need for lipid screening 06/16/2024 6:26 PM CAR REPAIRER HELPER - 06/16/2024 11:59 PM CAR REPAIRER HELPER Hospital Encounter [facility] [address] [place] [phone] Discharge Disposition: Discharge to home or self care from Last 3 Months Medical History Medical History Date Comments Atrial flutter (HCC) AV block Social History Tobacco Use Types Packs/Day Years Used Date Smoking Tobacco: Former Smokeless Tobacco: Never Tobacco Cessation:Counseling Given: Not Answered Alcohol Use Standard Drinks/Week Comments No 0 (1 standard drink = 0.6 oz pur e alcohol) Sex and Gender Information Value Date Recorded Sex Assigned at Not on file Legal Sex Male 12:34 AM CAR REPAIRER HELPER Gender Identity Not on file Sexual Orientation Not on file Obstetrics History Last Filed Vital Signs Vital Sign Reading Time Taken Comments Blood Pressure 128/80 06/20/2024 11:23 AM CAR REPAIRER HELPER Pulse 88 06/20/2024 11:23 AM CAR REPAIRER HELPER Temperature 36.3 C (97.3 F) 04/12/2020 10:10 AM CAR REPAIRER HELPER Respiratory Rate 18 01/28/2017 9:34 AM CDT Oxygen Saturation 98% 06/20/2024 11:23 AM CAR REPAIRER HELPER Inhaled Oxygen Concentration - - Weight 81.6 kg (180 lb) 06/20/2024 3:14 PM CAR REPAIRER HELPER Height 182.9 cm (6') 06/20/2024 3:14 PM CAR REPAIRER HELPER Body Mass Index 24.41 06/20/2024 3:14 PM CAR REPAIRER HELPER Plan of Treatment Health Maintenance Due Date Last Done Comments Colon Cancer Screening-Colonoscopy 1950 Depression Screening 1950 Fall Risk Assessment 1950 Hepatitis C Screening 1950 DTaP/Tdap/Td Vaccine (1 - Tdap) 11/06/1959 Hepatitis B Screening 1966 Pneumococcal vaccine 65+ (1 of 1 - PCV) 1998 Zoster Vaccine (1 of 2) 1998 Abdominal Aortic Aneurysm (AAA) Screen 2013 Well Visit 65+ 2013 Influenza Vaccine (Season Ended) 2024 Medical Devices Implanted Type Area Sole Leather Cutting Machine Operator Device Identifier Shelf Expiration Date Model / Serial / Lot Pacemaker-2012 Implanted:09/2012 by Alexis Barrios MD (Quantity not on file) Pacemaker Chest [employer] AV Block, SSS, Afib YONGIA DENNY / [id number] / Procedures Procedure Name Priority Date/Time Associated Diagnosis Comments DEVICE CHECK - REMOTE Routine 06/24/2024 9:56 AM CAR REPAIRER HELPER Complete heart block (HCC) SSS (sick sinus syndrome) (HCC) Ventricular tachycardia (HCC) POCT LIPID PANEL Routine 06/20/2024 4:03 PM CAR REPAIRER HELPER Need for lipid screening XR SHOULDER LEFT 2 OR MORE VIEWS Schedule Routine, Read Routine (OP Routine) 06/20/2024 3:35 PM CAR REPAIRER HELPER Rotator cuff syndrome of left shoulder XR TRANSFER OF OUTSIDE FILMS Routine 06/16/2024 6:26 PM CAR REPAIRER HELPER from Last 3 Months Results * DEVICE CHECK - REMOTE (06/24/2024 9:56 AM CAR REPAIRER HELPER) Anatomical Region Laterality Modality Other Narrative 07/01/2024 8:33 AM CAR REPAIRER HELPER Biotronik Edora Dual Pacemaker Dx; AV Block, SSS, Afib DOI 11/07/2022-Sophie. Chronic leads 08/30/2012. Biotronik remote home monitor Q3 mo, Office pacer checks Q1 yr. Pacemaker Dependent. Routine DDD Pacemaker Remote. Transmission attached. Battery status-Ok, 85% remaining to DANITA. Stable lead impedances, pacing and sensing thresholds. Presenting rhythm: -CHIEF RELAY TESTER. AP-73 %, CHIEF RELAY TESTER-97 %. No AT/AF episodes noted. No Ventricular arrhythmias detected. Medication: ASA 325 mg, Toprol XL. Office pacemaker f/u 03/15/2025. Bi[employer]ronik remote f/u 09/27/2024. Cherry Alarcon RN Alexis Barrios MD [facility] PROC EDURES Final Result * POCT lipid panel (06/20/2024 4:03 PM CAR REPAIRER HELPER) Cholesterol, POC 129 mg/dL HDL, POC 46 mg/dL Triglycerides, POC 169 mg/dL LDL Cholesterol POC 50 mg/dL Chol/HDL Ratio, POC 1.1 Non-HDL Cholesterol, POC 84 mg/dL Cholesterol Total, POC 129 mg/dL Capillary blood 06/20/2024 4 :03 PM CAR REPAIRER HELPER Alexis Barrios MD POINT OF CARE TEST ORDER ALEXANDRA Final Result * XR Shoulder Left 2+ View (06/20/2024 3:35 PM CAR REPAIRER HELPER) Anatomical Region Laterality Modality Upper Extremities, Shoulder Left Comp uted Radiography 06/20/2024 3:52 PM CAR REPAIRER HELPER Impressions 06/20/2024 3:52 PM CAR REPAIRER HELPER 1. Unchanged chronic left rotator cuff tear with superior escape of the humeral head, acromial undersurface remodeling, and moderate cuff tear arthropathy. 2. Mildly displaced left 4th-6th posterior rib fractures. Electronically signed by: Jalil Renteria M.D. Narrative 06/20/2024 3:52 PM CAR REPAIRER HELPER EXAMINATION: XR SHOULDER LEFT 2 OR MORE [...] * XR Outside Reference (06/16/2024 6:26 PM CAR REPAIRER HELPER) Impressions [facility] - 06/16/2024 6:26 PM CAR REPAIRER HELPER These images are for Reference purposes only and have not been reviewed by [facility]iology. There will be no report generated by a [facility] Radiologist. Narrative [facility] - 06/16/2024 6:26 PM CAR REPAIRER HELPER EXAMINATION: Images For Reference Purposes Only us Dustin Banks MD IMG XR PROCEDURES Final Result [facility] from Last 3 Months Insurance [facility] MEDICARE MEDICARE [facility] Member Subscriber Plan / Payer (Ef fective 2013-Present) Name:Nata Burden Relation to Subscriber:Self Name:Nata Burden Payer ID:[id number] Group ID:[id number] Type:[employer] Address: [facility] [id number] [place] [phone] MEDICARE [facility] Care Teams Windmill Mechanic Relationship Specialty Start Date End Date Alexis Washington MD PCP - General 01/11/15
--- OUTSIDE RECORDS SUMMARY | 2024-08-18 13:08 | XMS_ITS | Clinical Summary ---
Author Organization [facility] Address [facility] [place] [address] Care Team Providers Care Launch Leader Name Role Phone Unavailable Primary Care Provider Unavailabl e Social History Tobacco Use Types Packs/Day Years Used Date Smoking Tobacco: Never Assessed Sex and Gender Information Value Date Recorded Sex Assigned at Not on file Legal Sex Male 5:11 PM CDT Gender Identity Not on file Sexual Orientation Not on file Plan of Treatment Health Maintenance Due Date Last Done Comments Colorectal Cancer Screening Colonoscopy (10 Years) 1948 Hepatitis C 1966 DTaP, Tdap and Td Vaccines ( 1 - Tdap) 11/06/1967 Pneumococcal Vaccine: 50+ Ye ars (1 of 1 - PCV) 1998 Zoster Vaccines (1 of 2) 1998 RSV Immunization or 60+ Years (1 - 1-dose 75+ series) 11/06/2023 COVID-19 Vaccine ( - 2023-2 5 season) 2023 Meningococcal B Vaccine Aged Out No l onger eligible based on patient's age to complete this topic Meningococcal Vaccine Aged Out No charles ansley eligible based on patient's age to complete this topic RSV Immunizations Under 20 Months Aged Out No longer eligible based on patient's age to complete this topic
--- OUTSIDE RECORDS SUMMARY | 2024-08-18 13:08 | XMS_ITS | Data Portability ---
Author Organization [facility] Address [address] [place] [address] Care Team Providers Care Cd Mixer Name Role Phone RELL WASHINGTON Primary Care Provider [phone] Assessment Encounter Date Assessment Date Assessment LastModified by Organization Details LastModified Time 08/17/2023 08/17/2023 Blood pressure is well-controlled we will continue current therapy continue rosuvastatin for his dyslipidemia pacemaker stable diastolic heart failure discussed old records requested return to clinic 4 months [email or web address] Not available 08/17/2023 23:17:18 12/21/2023 12/21/2023 I did get a message that the brother was having some concerns about the patient's mobility overall functional status I asked Simon if he wanted his brother to come in as he is in the waiting room Simon declined. He says right now he is doing fine the shoulder has been a chronic issue does not want to do anything about it. I will draw some blood work and we will see me in 3-4 months. He does not want to pursue any screenings or immunizations he is alert and oriented x3 answers questions appropriately and can carry on a coherent conversation about national politics. Local sporting teams. And local news [email or web address] Not available 12/28/2023 18:32:04 04/14/2024 04/14/2024 blood pressure discussed he says of watch caffeine and salt but he does not want to go up on a medication dyslipidemia rosuvastatin he refuses flu pneumococcal Tdap COVID does not want to participate in any immunizations. Had a colonoscopy about a year ago we are going to try to get that report. He will follow up with me in 4 months and we will continue current therapy for now [email or web address] Not available 04/16/2024 17:20:20 Plan of Treatment Reminders Order Date Submit Date Provider Last Modified By Organization Details Last Modified Time Details Appointments ANY 15 2024 10:15A Ger Washington MD Not available Not available Not available ANY 15 2024 10:00A Ger Washington MD Not available Not available Not available Lab CBC w/ auto diff 2023 024 [facility], [address], [address], [place], [address], 04/14/2024 16:25:59 CMP, serum or plasma 2023 024 [facility], [address], [address], [place], [address], 04/14/2024 16:25:59 lipid panel, serum 2023 024 [facility], [address], [address], [place], [address], 04/14/2024 16:25:59 lipid panel, serum 2023 024 [facility], [address], [place], [address], 12/21/2023 15:52:41 CMP, serum or plasma 2023 024 [facility], [address], [address], [place], [address], 12/21/2023 15:52:40 CBC w/ auto diff 2023 024 [facility], [address], [place], [address], 12/21/2023 15:52:41 Referral None recorded . Procedures None recorded . Surgeries None recorded . Imaging None recorded . Medication Orders None recorded . Patient TargetsNo targets recorded. Patient Instructions Encounter Date Encounter Id Patient Instructions Last Modified By Organization Details Last Modified Time 04/14/2024 [id number] eating healthy foods: care instructions Not available 04/14/2024 15:33:02 Reason for Referral Neurologist Referral for Mart mor Referring Physician: Rell Washington, Internal Medicine, Encounter Date: 08/18/2024 Results Created Date Observation Date Name Description Value Unit Range Abnormal Flag Note LastModifiedBy Organization Detail LastModifiedTime 05/10/1905/10/2024 XR, shoul melissa, 2 or more view No observ ation record ed. [facility] [address], [place], [address], 05/11/2024 09:23:38 Result Notes None recorded. Problems Name Problem SNOMED Code Status Onset Date Resolution Date Notes Provider Name and Address Organization Details Recorded Time Essential hypertensio n 88897448 Active 2023 Rell Washington MD Attn: Tacoh rosenbaum,[address] [place], [address], [place] [facility] 4 23:17:44 Hyperlipide elaine 33770935 Active 2023 Rell Washington MD Attn: Tacho rosenbaum,[address] [place], [address], [place] [facility] 4 23:17:48 Chronic diastolic heart failure 092339283 Active 2023 Rell Washington MD Attn: Tacho ro[address]baum,[address] [place], [address], [place] [facility] 4 23:17:49 Permanent cardiac pacemaker 1062322643918 02 Active 2023 Rell Washington MD Attn: Tacho rosenbaum,[address] [place], [address], [place] [facility] 4 23:17:52 Tetanus vaccination declined by patient 796800186 Active 2023 Rell Washington MD Attn: Tacho rosenbaum,[address] [place], [address], [place] [facility] 4 17:21:03 Pneumococca l vaccination declined 959448263 Active 2023 Rell Washington MD Attn: Tacho rosenbaum,[address] [facility], [place], [address], [place] [facility] 4 17:21:04 SARS-CoV-2 vaccination declined 6147979840 Active 2023 Rell Washington MD Attn: Tacho rosenbaum,[address] [facility], [place], [address], [place] [facility] 4 17:21:06 Influenza vaccination declined 254623386 Active 2023 Rell Washington MD Attn: Tacho rosenbaum,[address] [facility], [place], [address], [place] [facility] 4 17:21:07 Problem Notes None recorded. Procedures Surgical History Date Name Laterality Status Provider Name and Address Organization Details Recorded Time Heart Surgery completed Rosalinda Leon [place] [facility] 08/17/2023 14:15:10 Pacemaker completed Rosalinda Leon [place] [facility] 08/17/2023 14:15:16 Imaging Results Imaging Date Name Status LastModified by Organiz ation Details LastModified Time 05/10/2024 XR, shoulder, 2 or more view completed [facility] [address], [place], [address], 05/11/2024 09:23:38 Procedure Notes None recorded. Medical Equipment None Reported. Allergies Allergen ID Allergen Name Allergen Category Reaction Reaction Severity Criticality Documentation Date Start Date Code Code System Note Provider Name and Address Organization Details Recorded Time 083996 morphine medicatio n rash Not available Not available 08/17/2023 7052 RxNorm Not Available Not Available Not Available Medications Name Sig Start Date Stop Date Status Note LastModified by Organization Details LastModified Time cephalexin 500 mg capsule 08/16 completed Not Available Not Available Not Available metoprolol succinate ER 25 mg tablet,extend ed release 24 hr TAKE 1 TABLET BY MOUTH EVERY DAY 2024 active Not Available Not Available Not Avai lable rosuvastatin 10 mg tablet TAKE 1 TABLET BY MOUTH EVERY DAY 2024 active Not Available Not Available Not Avai lable Vitals Date Recorded Body weight Heart rate Body temperature Oxygen saturation Oxygen saturation in Arterial blood by Pulse oximetry Systolic blood pressure Diastolic blood pressure Provider Name and Address Organization Details Last Updated DateTime 4 04937.0 7 g 80 /min 98.4 [degF] 98 % 98 % 132 mm[Hg] 84 mm[Hg] Rosalinda Leon MA [facility] 4 14:19:16 Date Recorded Body height Body mass index (BMI) Body weight Heart rate Oxygen saturation Oxygen saturation in Arterial blood by Pulse oximetry Systolic blood pressure Diastolic blood pressure Provider Name and Address Organization Details Last Updated DateTime 4 180.34 cm 25.2 kg/m2 42452.3 6 g 73 /min 99 % 99 % 126 mm[Hg] 78 mm[Hg] Aileen Browning MA [facility] 4 10:21:01 Date Recorded Body height Heart rate Oxygen saturation Oxygen saturation in Arterial blood by Pulse oximetry Systolic blood pressure Diastolic blood pressure Provider Name and Address Organization Details Last Updated DateTime 4 180.34 cm 78 /min 99 % 99 % 140 mm[Hg] 80 mm[Hg] Ambreen Villasenor MA [facility] 4 11:30:00 Date Recorded Body mass index (BMI) Body weight Provider Name and Address Organization Details Last Updated DateTime 04/14/2024 24.9 kg/m2 49599.88 g Sean Wei MA [facility] 1 06/15/2023 11:59:59 Date Recorded Body height Body mass index (BMI) Body weight Heart rate Oxygen saturation Oxygen saturation in Arterial blood by Pulse oximetry Systolic blood pressure Diastolic blood pressure Provider Name and Address Organization Details Last Updated DateTime 5 180.34 cm 24.2 kg/m2 35920.6 4 g 78 /min 98 % 98 % 134 mm[Hg] 84 mm[Hg] Aileen Browning MA [facility] 5 11:24:55 Social History Question Answer Notes LastModified by Organizat ion Details LastModified Time Tobacco Smoking Status Former Smoker Aileen Browning MA null, [facility] 12/21/2023 10:24:40 Do You Have An Advance Directive? Yes Information not available 12/21/2023 What Is Your Level Of Alcohol Consumption? None Information not available 08/17/2023 Are You Blind Or Do You Have Difficulty Seeing? No Information not available 08/17/2023 What Is Your Level Of Caffeine Consumption? Occasional Information not available 12/21/2023 In The 14 Days Before Symptom Onset, Have You Had Close Contact With A Laboratory-confir med COVID-19 While That Case Was Ill? No Information not available 12/21/2023 In The 14 Days Before Symptom Onset, Have You Had Close Contact With A Person Who Is Under Investigation For COVID-19 While That Person Was Ill? No Information not available 12/21/2023 Have You Been To An Area Known To Be High Risk For COVID-19? No Information not available 12/21/2023 Are You Currently Employed? No Information not available 12/21/2023 Are You Deaf Or Do You Have Serious Difficulty Hearing? No Information not available 08/17/2023 What Type Of Diet Are You Following? REGULAR Information not available 12/21/2023 Are There Any Guns Present In Your Home? No Information not available 08/18/2024 What Was The Date Of Your Most Recent Tobacco Screening? 08/18/2024 Information not available 08/18/2024 What Is Your Relationship Status? Information not available 08/17/2023 Do You Use Your Seat Belt Or Car Seat Routinely? Yes Information not available 08/17/2023 Do You Have Smoke And Carbon Monoxide Detectors In Your Home? Yes Information not available 08/18/2024 Do You Feel Stressed (tense, Restless, Nervous, Or Anxious, Or Unable To Sleep At Night)? RR0758-5 Information not available 08/17/2023 Do You Use Any Illicit Or Recreational Drugs? No Information not available 12/21/2023 Do You Use Sunscreen Routinely? No Information not available 08/18/2024 Has Tobacco Cessation Counseling Been Provided? Yes Information not available 12/21/2023 On What Date Was Tobacco Cessation Counseling Provided? 08/18/2024 Information not available 08/18/2024 Sex: Male Functional Status Question Answer Note LastModified by Organization D etails LastModified Time Are you able to care for yourself? Yes Information n ot available 08/17/2023 Mental Status None recorded. Family History Relationship Description Onset Age of this Age Resolved Age Notes LastModified by Organization Details LastModified Time Mother Malignant tumor of breast [email or web address] Not available 2023 14:15:26 Mother Hypertensive disorder [email or web address] Not available 2023 14:15:35 Father Hypertensive disorder [email or web address] Not available 2023 14:15:35 Father Heart disease [email or web address] Not available 2023 14:15:39 Medical History Condition Response Muscle, Joint, or Bone Problems Y High Blood Pressure Y High Cholesterol Y Heart Failure Y Immunizations Vaccine Type Date Status Note Provider Nam e and Address Organization Details Recorded Time tetanus toxoid, unspecified formulation 04/27/2007 completed Aileen Browning MA [facility] 08/18/2024 09:24:08 Past Encounters Encounter ID Performer Location Encounter Start Date Encounter Closed Date Diagnosis/Indication Diagnosis SNOMED-CT Code Diagnosis ICD10 Code Diagnosis Note [id number] Rell Washington MD [facility] [employer] [address] [place] [address] 08/17/2023 13:57:26 08/17/2023 14:58:09 Essential hypertension 39630527 I10 Hyperlipidemia 52434528 E78.5 Chronic di astolic heart failure 457747138 I50.32 Permanent cardiac pacemaker 4858128389 40610 Z95.0 [id number] Rell Washington MD [facility] [employer] [address] [place] [address] 12/21/2023 10:13:09 12/21/2023 11:18:54 Essential hypertension 60403069 I10 Chronic di astolic heart failure 446749977 I50.32 Hyperlipidemia 31672157 E78.5 Permanent cardiac pacemaker 6445074676 95709 Z95.0 [id number] Rell Washington MD [facility] [employer] [facility] [place] [address] [place] [address] 04/14/2024 11:03:55 04/14/2024 12:07:01 Body mass index 25-29 - overweight 239010236 Z68.25 Essential hypertension 37675469 I10 Hyperlipidemia 23956933 E78.5 Body mass index 20-24 - normal 481830157 Z68.24 Chronic di astolic heart failure 522728636 I50.32 Influenza vaccination declined 421377487 Z28.21 SARS-CoV-2 vaccination declined 9429935860 Z28.21 Pneumococc al vaccination declined 061021086 Z28.21 Tetanus va ccination declined by patient 220950825 Z28.21 [id number] Sean Wei MA [facility] [employer] [facility] [place] [address] [place] [address] 08/18/2024 11:00:28 08/18/2024 12:04:04 Body mass index 20-24 - normal 626057900 Z68.24 Overweight 633116328 E66 .3 Essential hypertension 24443659 I10 Tremor 86474239 R25.1 Health Concerns Section Related Observation LastModified by Organization Detai ls LastModified Time None Recorded Concern Status LastModified by Organization Details LastModified Time None Recorded Advance Directives Directive Y: Payers Encounter Date Sequence Insurance Name Policy Number Policy Lara Covered Member ID Lara Member ID Guarantor Name 08/17/2023 1 [place] Francisco Rosenbaum Creath [id number] Francisco Rosenbaum Creath 08/17/2023 2 [employer] OPTIONS (MEDICARE SUPPLEMENT) Francisco Rosenbaum Creath [id number] Francisco Rosenbaum Creath 12/21/2023 1 [place] Francisco Rosenbaum Creath [id number] Francisco Rosenbaum Creath 12/21/2023 2 [employer] OPTIONS (MEDICARE SUPPLEMENT) Francisco Rosenbaum Creath [id number] Francisco Rosenbaum Creath 04/14/2024 1 [place] Francisco Rosenbaum Creath [id number] Francisco Rosenbaum Creath 04/14/2024 2 [employer] HE[employer] OPTIONS (MEDICARE SUPPLEMENT) Francisco Burden [id number] Francisco Burden Notes Date Note Type Note Provider Name and Address Organization Details Recorded Time 08/17/2023 text/html 72-year-old with hypertension hyperlipidemia chronic diastolic heart failure and pacemaker comes in for follow-up of his medical problems high blood pressure no headache or dizziness hyperlipidemias diet is pretty good he takes his rosuvastatin without any problems diastolic heart failure has been doing fine pacemaker no complaints referable to the Rell Washington MD Attn: [employer] [facility], [place], [address], [facility] 08/17/2023 23:18:15 12/21/2023 text/html hypertension no headache or dizziness. Chronic diastolic diastolic heart failure no chest pain shortness of breath PND orthopnea. Dyslipidemia does try to follow low-fat diet. Permanent cardiac pacemaker he has not had any lightheadedness he has had some left shoulder pain no injury but he does not want to see anybody about it Rell Washington MD Attn: [employer] [facility], [place], [address], [facility] 12/28/2023 18:32:21 04/14/2024 text/html for medical foll ow up hypertension blood pressure 140/80 he does not want to go up on any medications and he is asymptomatic. Dyslipidemia taking rosuvastatin without any side effects. Also he has had a tremor it is not any worse. No referable symptoms to his cardiac pacemaker. diastolic heart failure no PND orthopnea or edema Rell Washington MD Attn: [employer] [facility], [place], [address], [facility] 04/16/2024 17:21:43
--- OUTSIDE RECORDS SUMMARY | 2024-08-18 13:08 | XMS_ITS | Data Portability ---
Author Organization [place] - [facility] [employer], Main Office Address [address] [place] [address] Assessment Encounter Date Assessment Date Assessment LastModified by Organization Details LastModified Time 12/02/2022 12/02/2022 Continue current therapy blood work reviewed follow-up in 4 months [email or web address] Not available 12/14/2022 21:29:44 04/07/2023 04/07/2023 Will continue current therapy clinically stable immunizations and screenings discussed ordered were appropriate patient agreeable follow-up 4 months [email or web address] Not available 04/07/2023 23:03:23 Plan of Treatment Reminders Order Date Submit Date Provider Last Modified By Organization Details Last Modified Time Details Appointments None recorded . Lab PSA, serum or plasma 023 04/07/20 23 [email or web address] Not available 3 09:58:37 CMP, serum or plasma 023 04/07/20 23 [email or web address] Not available 3 15:58:06 CBC w/ auto diff 023 04/07/20 23 [email or web address] Not available 3 15:58:06 lipid panel, serum 023 04/07/20 23 [email or web address] Not available 3 15:58:06 Referral None recorded . Procedures None recorded . Surgeries None recorded . Imaging None recorded . Medication Orders None recorded . Patient TargetsNo targets recorded. Patient InstructionsNo instructions recorded. Reason for Referral None Reported. Results Created Date Observation Date Name Description Value Unit Range Abnormal Flag Note LastModifiedBy Organization Detail LastModifiedTime 10/04/19 22 10/03/2021 PSA SCREE N PSA medicare screen 0.35 NG/mL 0.00-4 .00 Not Available [facility] (Lab) [address] [place], [address], 10/03/2021 19:54:51 10/04/19 22 10/03/2021 COMPR EHENS CRISTOPHER METAB OLIC PANEL carbon dioxide 27 mmol/ L 22-30 Not Available [facility] (Lab) [address] [place], [address], 10/03/2021 19:34:11 10/04/19 22 10/03/2021 COMPR EHENS CRISTOPHER METAB OLIC PANEL sodium 142 mmol/ L 137-14 5 Not Available [facility] (Lab) [address] [place], [address], 10/03/2021 19:34:11 10/04/19 22 10/03/2021 COMPR EHENS CRISTOPHER METAB OLIC PANEL potassium 5.2 mmol/ L 3.5-5. 1 high Not Available [facility] (Lab) [address] [place], [address], 10/03/2021 19:34:11 10/04/19 22 10/03/2021 COMPR EHENS CRISTOPHER METAB OLIC PANEL chloride 107 mmol/ L 98-107 Not Available [facility] (Lab) [address] [place], [address], 10/03/2021 19:34:11 10/04/19 22 10/03/2021 COMPR EHENS CRISTOPHER METAB OLIC PANEL anion gap 13.2 mmol/ L 14-22 low Not Available [facility] (Lab) [address] [place], [address], 10/03/2021 19:34:11 10/04/19 22 10/03/2021 COMPR EHENS CRISTOPHER METAB OLIC PANEL glucose 107 mg/dL 70-99 high Not Available [facility] (Lab) [address] [place], [address], 10/03/2021 19:34:11 10/04/19 22 10/03/2021 COMPR EHENS CRISTOPHER METAB OLIC PANEL BUN 25 mg/dL 8-19 high Not Available [facility] (Lab) [address] [place], [address], 10/03/2021 19:34:11 10/04/19 22 10/03/2021 COMPR EHENS CRISTOPHER METAB OLIC PANEL creatinine 0.82 mg/dL 0.66-1 .25 Not Available [facility] (Lab) [address] [place], [address], 10/03/2021 19:34:11 10/04/19 22 10/03/2021 COMPR EHENS CRISTOPHER METAB OLIC PANEL GFR >60 Refer ence Range : [place] ge GFR Healt hy Adult : >60 mL/mi n/1.7 3 m2 Chron ic Kidne y Disea se: 15-60 mL/mi n/1.7 3 m2 Kidne y Failu re: <15/m L/min /1.73 m2 www.n iddk. nih.g ov The MDRD study equat ion has not been valid ated in child maryellen <18 years of age; pregn ant women ; the elder ly >85 years of age; or in some racia l or ethni c subgr oups, such as dc nics. Outsi de the valid ated nathanael eters , estim ated GFR is less accur ate, requi ring clini quan judgm ent on a case- by-ca se basis . Clini quan inter preta tion for other races and ages must be made by the clini annabella. The MDRD study equat ion has not been valid ated for the evalu ation of serum creat inine relat ed to nutri lillie l statu s or medic ation usage . For perso ns <18 years of age, a pedia tric GFR calcu lator is avail able on the F websi te: https ://douglas sun.javid crystal.o codey/pr ofess ional s/kdo qi/gf r_cal culat or Not Available [facility] (Lab) [address] [place], [address], 10/03/2021 19:34:11 10/04/19 22 10/03/2021 COMPR EHENS CRISTOPHER METAB OLIC PANEL alkaline phosphatase 88 U/L 38-[address] [facility] (Lab) [address] [place], [address], 10/03/2021 19:34:11 10/04/19 22 10/03/2021 COMPR EHENS CRISTOPHER METAB OLIC PANEL alanine aminotransfe rase 18 U/L 0-50 Not Available [facility] (Lab) [address] [place], [address], 10/03/2021 19:34:11 10/04/19 22 10/03/2021 COMPR EHENS CRISTOPHER METAB OLIC PANEL aspartate aminotransfe rase 26 U/L 15-46 Not Available [facility] (Lab) [address] [facility] [place], [address], 10/03/2021 19:34:11 10/04/19 22 10/03/2021 COMPR EHENS CRISTOPHER METAB OLIC PANEL bilirubin, total 0.60 mg/dL 0.20-1 .30 Not Available [facility] (Lab) [address] [place], [address], 10/03/2021 19:34:11 10/04/19 22 10/03/2021 COMPR EHENS CRISTOPHER METAB OLIC PANEL calcium 9.8 mg/dL 8.4-10 .2 Not Available [facility] (Lab) [address] [facility] [place], [address], 10/03/2021 19:34:11 10/04/19 22 10/03/2021 COMPR EHENS CRISTOPHER METAB OLIC PANEL total protein 7.9 g/dL 6.3-8. 2 Not Available [facility] (Lab) [address] [facility] [place], [address], 10/03/2021 19:34:11 10/04/19 22 10/03/2021 COMPR EHENS CRISTOPHER METAB OLIC PANEL albumin 4.6 g/dL 3.0-4. 4 high Not Available [facility] (Lab) [address] [place], [address], 10/03/2021 19:34:11 10/04/19 22 10/03/2021 COMPR EHENS CRISTOPHER METAB OLIC PANEL globulin 3.3 g/dL 2.6-4. 2 Not Available [facility] (Lab) [address] [place], [address], 10/03/2021 19:34:11 10/04/19 22 10/03/2021 COMPR EHENS CRISTOPHER METAB OLIC PANEL A/G ratio 1.4 ratio 1.0-2. 0 Not Available [facility] (Lab) [address] [place], [address], 10/03/2021 19:34:11 10/04/19 22 10/03/2021 LIPID PANEL HDL cholesterol 51 mg/dL 40- Not Available [facility] (Lab) [address] [place], [address], 10/03/2021 19:34:10/04/19 22 10/03/2021 LIPID PANEL cholesterol 123 mg/dL 140-19 9 low NIH VICTORIANO NSUS RECOM MENDA TION FOR FLOR STERO L: ADULT CHILD LOW RISK: <200 <170 BORDE RLINE : <200- 239 ----- HIGH RISK: >240 >200 Not Available [facility] (Lab) [address] [place], [address], 10/03/2021 19:34:06 10/04/1910/03/2021 LIPID PANEL triglyceride s 60 mg/dL 0-150 NIH VICTORIANO NSUS REPOR T RECOM MENDA TION FOR TRIGL YCERI NEREIDA: ADULT CHILD LOW RISK: <150 ----- BODER LINE: 150-1 99 ----- HIGH RISK: >200 ----- Not Available [facility] (Lab) [address] [place], [address], 10/03/2021 19:34:06 10/04/19 22 10/03/2021 LIPID PANEL LDL cholesterol, calculated 60 mg/dL 0-130 NIH VICTORIANO NSUS REPOR T RECOM MENDA TIONS FOR LDL: ADULT CHILD LOW RISK <130 <110 (OPTI MAL LDL) <100 ----- BORDE RLINE : 130-1 59 ----- HIGH RISK: >160 >130 A TRIGL YCERI DE RESUL T >400 INVAL IDATE S THE CALCU LATIO N FOR LDL FRACT IONAT ION - THE LDL RESUL T WILL NOT BE REPOR JESSY. Not Available [facility] (Lab) [address] [place], [address], 10/03/2021 19:34:06 04/07/20 23 04/07/2023 CBC/C OMPLE TE BLD COUNT W/DIF F white blood cells 4.7 x10'3 /uL 4.2-10 .8 Not Available [facility] (Lab) [address] [place], [address], 04/07/2023 13:10:36 04/07/20 23 04/07/2023 CBC/C OMPLE TE BLD COUNT W/DIF F red blood cells 4.07 x10'6 /uL 4.10-5 .80 low Not Available [facility] (Lab) [address] [place], [address], 04/07/2023 13:10:36 04/07/20 23 04/07/2023 CBC/C OMPLE TE BLD COUNT W/DIF F hemoglobin 12.5 g/dL 13.2-1 7.0 low Not Available [facility] (Lab) [address] [place], [address], 04/07/2023 13:10:36 04/07/20 23 04/07/2023 CBC/C OMPLE TE BLD COUNT W/DIF F hematocrit 38.4 % 39.3-5 0.0 low Not Available [facility] (Lab) [address] [place], [address], 04/07/2023 13:10:36 04/07/20 23 04/07/2023 CBC/C OMPLE TE BLD COUNT W/DIF F mean red cell volume 94.3 fL 80.0-9 7.0 Not Available [facility] (Lab) [address] [place], [address], 04/07/2023 13:10:36 04/07/20 23 04/07/2023 CBC/C OMPLE TE BLD COUNT W/DIF F mean red cell hemoglobin 30.7 pg 27.0-3 3.0 Not Available [facility] (Lab) [address] [place], [address], 04/07/2023 13:10:36 04/07/20 23 04/07/2023 CBC/C OMPLE TE BLD COUNT W/DIF F mean RBC HGB concentratio n 32.6 g/dL 31.0-3 6.0 Not Available [facility] (Lab) [address] [facility] [place], [address], 04/07/2023 13:10:36 04/07/20 23 04/07/2023 CBC/C OMPLE TE BLD COUNT W/DIF F red cell distribution width 14.0 % 11.8-1 5.5 Not Available [facility] (Lab) [address] [place], [address], 04/07/2023 13:10:36 04/07/20 23 04/07/2023 CBC/C OMPLE TE BLD COUNT W/DIF F platelets 193 x10'3 /uL 150-40 0 Not Available [facility] (Lab) [address] [place], [address], 04/07/2023 13:10:36 04/07/20 23 04/07/2023 CBC/C OMPLE TE BLD COUNT W/DIF F mean platelet volume 11.9 fL 9.0-12 .4 Not Available [facility] (Lab) [address] [place], [address], 04/07/2023 13:10:36 04/07/20 23 04/07/2023 CBC/C OMPLE TE BLD COUNT W/DIF F neutrophils 55.4 % 39.0-7 2.0 Not Available [facility] (Lab) [address] [place], [address], 04/07/2023 13:10:36 04/07/20 23 04/07/2023 CBC/C OMPLE TE BLD COUNT W/DIF F lymphocytes 29.1 % 16.0-4 7.0 Not Available [facility] (Lab) [address] [place], [address], 04/07/2023 13:10:36 04/07/20 23 04/07/2023 CBC/C OMPLE TE BLD COUNT W/DIF F monocytes 11.9 % 5.0-12 .0 Not Available [facility] (Lab) [address] [place], [address], 04/07/2023 13:10:36 04/07/20 23 04/07/2023 CBC/C OMPLE TE BLD COUNT W/DIF F eosinophils 2.3 % 1.0-7. 0 Not Available [facility] (Lab) [address] [place], [address], 04/07/2023 13:10:36 04/07/20 23 04/07/2023 CBC/C OMPLE TE BLD COUNT W/DIF F basophils 1.1 % 0.0-2. 0 Not Available [facility] (Lab) [address] [place], [address], 04/07/2023 13:10:36 04/07/20 23 04/07/2023 CBC/C OMPLE TE BLD COUNT W/DIF F immature granulocytes 0.2 % 0.00-0 .50 Not Available [facility] (Lab) [address] [facility] [place], [address], 04/07/2023 13:10:36 04/07/20 23 04/07/2023 CBC/C OMPLE TE BLD COUNT W/DIF F neutrophils, absolute count 2.60 x10'3 /uL 1.5-8. 0 Not Available [facility] (Lab) [address] [place], [address], 04/07/2023 13:10:36 04/07/20 23 04/07/2023 CBC/C OMPLE TE BLD COUNT W/DIF F lymphocytes, absolute count 1.37 x10'3 /uL 1.07-3 .43 Not Available [facility] (Lab) [address] [place], [address], 04/07/2023 13:10:36 04/07/20 23 04/07/2023 CBC/C OMPLE TE BLD COUNT W/DIF F monocytes, absolute count 0.56 x10'3 /uL 0.29-0 .99 Not Available [facility] (Lab) [address] [place], [address], 04/07/2023 13:10:36 04/07/20 23 04/07/2023 CBC/C OMPLE TE BLD COUNT W/DIF F eosinophils, absolute count 0.11 x10'3 /uL 0.02-0 .53 Not Available [facility] (Lab) [address] [place], [address], 04/07/2023 13:10:36 04/07/20 23 04/07/2023 CBC/C OMPLE TE BLD COUNT W/DIF F basophils, absolute count 0.05 x10'3 /uL 0.01-0 .08 Not Available [facility] (Lab) [address] [place], [address], 04/07/2023 13:10:36 04/07/20 23 04/07/2023 CBC/C OMPLE TE BLD COUNT W/DIF F immature granulocytes ,absolute 0.01 x10'3 /uL 0.00-0 .05 Not Available [facility] (Lab) [address] [place], [address], 04/07/2023 13:10:36 04/07/20 23 04/07/2023 CBC/C OMPLE TE BLD COUNT W/DIF F nucleated red blood cells 0.0 % -0 Not Available [facility] (Lab) [address] [place], [address], 04/07/2023 13:10:36 04/07/20 23 04/07/2023 CBC/C OMPLE TE BLD COUNT W/DIF F NRBC# 0.00 x10'3 /uL Not Available [facility] (Lab) [address] [place], [address], 04/07/2023 13:10:36 04/07/20 23 04/07/2023 COMPR EHENS CRISTOPHER METAB OLIC PANEL sodium 142 mmol/ L 137-14 5 Not Available [facility] (Lab) [address] [place], [address], 04/07/2023 13:53:09 04/07/20 23 04/07/2023 COMPR EHENS CRISTOPHER METAB OLIC PANEL potassium 4.1 mmol/ L 3.5-5. 1 Not Available [facility] (Lab) [address] [place], [address], 04/07/2023 13:53:09 04/07/20 23 04/07/2023 COMPR EHENS CRISTOPHER METAB OLIC PANEL chloride 105 mmol/ L 98-107 Not Available [facility] (Lab) [address] [place], [address], 04/07/2023 13:53:09 12/12/04/07/2023 COMPR EHENS CRISTOPHER METAB OLIC PANEL carbon dioxide 28 mmol/ L 22-30 Not Available [facility] (Lab) [address] [place], [address], 04/07/2023 13:53:09 04/07/20 23 04/07/2023 COMPR EHENS CRISTOPHER METAB OLIC PANEL anion gap 13.1 mmol/ L 14-22 low Not Available [facility] (Lab) [address] [place] [address], [address], 04/07/2023 13:53:09 04/07/20 23 04/07/2023 COMPR EHENS CRISTOPHER METAB OLIC PANEL glucose 102 mg/dL 70-99 high Not Available [facility] (Lab) [address] [place] [address], [address], 04/07/2023 13:53:09 04/07/20 23 04/07/2023 COMPR EHENS CRISTOPHER METAB OLIC PANEL BUN 22 mg/dL 8-19 high Not Available [facility] (Lab) [address] [place] [address], [address], 04/07/2023 13:53:09 04/07/20 23 04/07/2023 COMPR EHENS CRISTOPHER METAB OLIC PANEL creatinine 0.68 mg/dL 0.66-1 .25 Not Available [facility] (Lab) [address] [place] [address], [address], 04/07/2023 13:53:09 04/07/2004/07/2023 COMPR EHENS CRISTOPHER METAB OLIC PANEL GFR >60 Refer ence Range : [place] ge GFR Healt hy Adult : >60 mL/mi n/1.7 3 m2 Chron ic Kidne y Disea se: 15-60 mL/mi n/1.7 3 m2 Kidne y Failu re: <15/m L/min /1.73 m2 www.n iddk. nih.g ov The MDRD study equat ion has not been valid ated in child maryellen <18 years of age; pregn ant women ; the elder ly >85 years of age; or in some racia l or ethni c subgr oups, such as Hispa nics. Outsi de the valid ated nathanael eters , estim ated GFR is less accur ate, requi ring clini quan judgm ent on a case- by-ca se basis . Clini quan inter preta tion for other races and ages must be made by the clini annabella. The MDRD study equat ion has not been valid ated for the evalu ation of serum creat inine relat ed to nutri lillie l statu s or medic ation usage . For perso ns <18 years of age, a pedia tric GFR calcu lator is avail able on the [facility] websi te: https ://douglas crystal.obed alegre/pr bereniceess ional s/kdo qi/gf r_cal culat or Not Available [facility] (Lab) [address] [place], [address], 04/07/2023 13:53:09 04/07/20 23 04/07/2023 COMPR EHENS CRISTOPHER METAB OLIC PANEL alkaline phosphatase 81 U/L 38-[address] [facility] (Lab) [address] [place], [address], 04/07/2023 13:53:09 04/07/20 23 04/07/2023 COMPR EHENS CRISTOPHER METAB OLIC PANEL alanine aminotransfe rase 17 U/L 0-50 Not Available [facility] (Lab) [address] [place], [address], 04/07/2023 13:53:09 04/07/20 23 04/07/2023 COMPR EHENS CRISTOPHER METAB OLIC PANEL aspartate aminotransfe rase 26 U/L 15-46 Not Available [facility] (Lab) [address] [place], [address], 04/07/2023 13:53:09 04/07/20 23 04/07/2023 COMPR EHENS CRISTOPHER METAB OLIC PANEL bilirubin, total 0.70 mg/dL 0.20-1 .30 Not Available [facility] (Lab) [address] [place], [address], 04/07/2023 13:53:09 04/07/20 23 04/07/2023 COMPR EHENS CRISTOPHER METAB OLIC PANEL calcium 10.1 mg/dL 8.4-10 .2 Not Available [facility] (Lab) [address] [facility] [place], [address], 04/07/2023 13:53:09 04/07/20 23 04/07/2023 COMPR EHENS CRISTOPHER METAB OLIC PANEL total protein 7.9 g/dL 6.3-8. 2 Not Available [facility] (Lab) [address] [facility] [place], [address], 04/07/2023 13:53:09 04/07/20 23 04/07/2023 COMPR EHENS CRISTOPHER METAB OLIC PANEL albumin 4.5 g/dL 3.0-4. 4 high Not Available [facility] (Lab) [address] [place], [address], 04/07/2023 13:53:09 04/07/20 23 04/07/2023 COMPR EHENS CRISTOPHER METAB OLIC PANEL globulin 3.4 g/dL 2.6-4. 2 Not Available [facility] (Lab) [address] [place], [address], 04/07/2023 13:53:09 04/07/20 23 04/07/2023 COMPR EHENS CRISTOPHER METAB OLIC PANEL A/G ratio 1.3 ratio 1.0-2. 0 Not Available [facility] (Lab) [address] [place], [address], 04/07/2023 13:53:09 04/07/20 23 04/07/2023 LIPID PANEL cholesterol 133 mg/dL 140-19 9 low NIH VICTORIANO NSUS RECOM MENDA TION FOR FLOR STERO L: ADULT CHILD LOW RISK: <200 <170 BORDE RLINE : <200- 239 ----- HIGH RISK: >240 >200 Not Available [facility] (Lab) [address] [place], [address], 04/07/2023 13:53:16 04/07/20 23 04/07/2023 LIPID PANEL triglyceride s 48 mg/dL 0-150 NIH VICTORIANO NSUS REPOR T RECOM MENDA TION FOR TRIGL YCERI NEREIDA: ADULT CHILD LOW RISK: <150 ----- BODER LINE: 150-1 99 ----- HIGH RISK: >200 ----- Not Available [facility] (Lab) [address] [place], [address], 04/07/2023 13:53:16 04/07/20 23 04/07/2023 LIPID PANEL HDL cholesterol 64 mg/dL 40- Not Available [facility] (Lab) [address] [place], [address], 04/07/2023 13:53:16 04/07/20 23 04/07/2023 LIPID PANEL LDL cholesterol, calculated 59 mg/dL 0-130 NIH VICTORIANO NSUS REPOR T RECOM MENDA TIONS FOR LDL: ADULT CHILD LOW RISK <130 <110 (OPTI MAL LDL) <100 ----- BORDE RLINE : 130-1 59 ----- HIGH RISK: >160 >130 A TRIGL YCERI DE RESUL T >400 INVAL IDATE S THE CALCU LATIO N FOR LDL FRACT IONAT ION - THE LDL RESUL T WILL NOT BE REPOR JESSY. Not Available [facility] (Lab) [address] [place], [address], 04/07/2023 13:53:16 04/07/20 23 04/07/2023 PSA SCREE N PSA medicare screen 0.33 NG/mL 0.00-4 .00 Not Available [facility] (Lab) [address] [place], [address], 04/07/2023 14:20:23 Result Notes None recorded. Problems Name Problem SNOMED Code Status Onset Date Resolution Date Notes Provider Name and Address Organization Details Recorded Time Permanent cardiac pacemaker 62161707912 9102 Active 2020 Not Available [facility] 3 06:32:10 Benign essential hypertens ion 0641461 Active Not Available [facility] 3 06:32:10 Pure hyperchol esterolem ia 957246529 Active Not Available [facility] 3 06:32:10 Malaise and fatigue 921380274 Active Not Available [facility] 3 06:32:10 Osteoarth ritis 365746469 Active 2021 Not Available [facility] 3 06:32:10 Hypothyro idism 13691782 Completed Not Available [facility] 3 06:01:40 Problem Notes None recorded. Procedures Surgical History Date Name Laterality Status Provider Name and Address Organization Details Recorded Time 9 Colonoscopy completed Not Available [facility] 06/26/19 05:55:53 Pacemaker completed Not Available [facility] 0 06/25/2022 05:55:53 Colonoscopy completed Not Available [facility] 06/25/2022 05:55:53 Imaging Results None recorded. Procedure Notes None recorded. Medical Equipment None Reported. Allergies Allergen ID Allergen Name Allergen Category Reaction Reaction Severity Criticality Documentation Date Start Date Code Code System Note Provider Name and Address Organization Details Recorded Time 73725 morphine medicatio n rash Not available Not available 06/25/2022 7052 RxNorm Not Available [facility] 3 06:08:23 Medications Name Sig Start Date Stop Date Status Note LastModified by Organization Details LastModified Time aspirin 325 mg tablet Take 1 tablet every day by oral route. 01/30 completed Not Available Not Available Not Available valacyclo vir 1 gram tablet 06/09 completed Not Available Not Available Not Available Generlac 10 gram/15 mL oral solution Take 15 mL 3 times a day by oral route. 09/29 completed Not Available Not Available Not Available tramadol 50 mg tablet 06/09 completed pt states he is not taking this anymore Not Available Not Available Not Available levothyro xine 25 mcg tablet TK 1 T PO ONCE D 09/29 completed Not Available Not Available Not Available Zofran 4 mg tablet Take 1 tablet 3 times a day by oral route as needed. 02/05 completed pt stopped on his own. Not Available Not Available Not Available oxycodone -acetamin ophen 5 mg-325 mg tablet Take 1 tablet 3 times a day by oral route. active Not Available Not Available No t Available cephalexi n 500 mg capsule 12/02 completed Not Available Not Available Not Available pantopraz ole 40 mg tablet,de layed release Take 1 tablet every day by oral route. 10/03 completed Not Available Not Available Not Available omeprazol e 20 mg capsule,d elayed release 01/22 completed Not Available Not Available Not Available furosemid e 20 mg tablet 01/22 completed not in with meds Not Available Not Available Not Available gabapenti n 100 mg capsule Take 1 capsule twice a day by oral route. active Not Available Not Available No t Available metoprolo l succinate ER 25 mg tablet,ex tended release 24 hr one daily active Not Available Not Available No t Available ondansetr on 4 mg disintegr ating tablet 02/05 completed pt stopped on his own. Not Available Not Available Not Available hydroxyzi ne pamoate 25 mg capsule Take 1 capsule 4 times a day by oral route. 01/22 completed pt stopped on his own Not Available Not Available Not Available rosuvasta tin 10 mg tablet TAKE 1 TABLET BY MOUTH EVERY DAY active Not Available Not Available No t Available Crestor 5 mg tablet Take 1 tablet every day by oral route. active Not Available Not Available No t Available Aleve 12/02 completed Not Available Not Available Not Available Vitamin D3 05/29 completed Not Available Not Available Not Available Miralax 01/30 completed Not Available Not Available Not Available peg 3350 240 gram-elec trolytes 22.72 gram-6.72 g-5.84 g powdr for soln 12/07 completed Not Available Not Available Not Available [facility] (diphenhy dramine) 10/03 completed Not Available Not Available Not Available Fruit and Vegetable Daily 2021 active Not Available Not Available Not Avai lable Xarelto 20 mg tablet 12/11 completed Not Available Not Available Not Available Vitals Date Recorded Body mass index (BMI) Body height Pain severity - 0-10 verbal numeric rating [Score] - Reported Heart rate Body temperature Body weight Systolic blood pressure Diastolic blood pressure Provider Name and Address Organization Details Last Updated DateTime 2 31.6 kg/m2 177.8 cm 0 68 /min 96.3 [degF] 88996.3 2 g 130 mm[Hg] 70 mm[Hg] Not Available [facility] 3 05:56:57 Date Recorded Body mass index (BMI) Body height Heart rate Body temperature Body weight Systolic blood pressure Diastolic blood pressure Provider Name and Address Organization Details Last Updated DateTime 2 31.3 kg/m2 177.8 cm 92 /min 98.2 [degF] 96834.1 4 g 126 mm[Hg] 72 mm[Hg] Not Available [facility] 3 05:56:57 Date Recorded Body mass index (BMI) Body height Heart rate Body temperature Body weight Systolic blood pressure Diastolic blood pressure Provider Name and Address Organization Details Last Updated DateTime 3 31.1 kg/m2 177.8 cm 65 /min 97.4 [degF] 41434.5 4 g 128 mm[Hg] 80 mm[Hg] Not Available [facility] 3 05:56:57 Date Recorded Body height Body mass index (BMI) Body weight Body temperature Heart rate Oxygen saturation Oxygen saturation in Arterial blood by Pulse oximetry Systolic blood pressure Diastolic blood pressure Provider Name and Address Organization Details Last Updated DateTime 3 177.8 cm 28.7 kg/m2 96050.4 7 g 97.7 [degF] 76 /min 98 % 98 % 142 mm[Hg] 80 mm[Hg] Tennille Abdi [place] [facility] [place] [employer] [facility] 3 11:01:39 Date Recorded Body height Body mass index (BMI) Body weight Body temperature Heart rate Systolic blood pressure Diastolic blood pressure Provider Name and Address Organization Details Last Updated DateTime 3 177.8 cm 29.1 kg/m2 82287.2 5 g 97.9 [degF] 76 /min 128 mm[Hg] 86 mm[Hg] VIRGINIE Ortega [place] - [facility] 3 10:55:51 Social History Question Answer Notes LastModified by Organization Details LastModified Time Tobacco Smoking Status Former Smoker quit 1981 Not Available [employer] 06/25/2022 05:53:43 Do You Have An Advance Directive? No Pt Declined Information MIGRATION.030 [id number] Information not available 06/25/2022 What Is Your Level Of Alcohol Consumption? None MIGRATION.030 893713 Information not available 06/25/2022 Do You Wear A Helmet When Biking? Yes MIGRATION.030 452378 Information not available 06/25/2022 Are You Blind Or Do You Have Difficulty Seeing? No MIGRATION.030 655672 Information not available 06/25/2022 What Is Your Level Of Caffeine Consumption? Moderate MIGRATION.030 601810 Information not available 06/25/2022 In The 14 Days Before Symptom Onset, Have You Had Close Contact With A Laboratory-conf irmed COVID-19 While That Case Was Ill? No MIGRATION.030 [id number] Information not available 06/25/2022 In The 14 Days Before Symptom Onset, Have You Had Close Contact With A Person Who Is Under Investigation For COVID-19 While That Person Was Ill? No MIGRATION.030 097975 Information not available 06/25/2022 Are You Deaf Or Do You Have Serious Difficulty Hearing? No MIGRATION.030 138713 Information not available 06/25/2022 What Type Of Diet Are You Following? REGULAR MIGRATION.300026 Information not available 06/25/2022 What Is The Highest Grade Or Level Of School You Have Completed Or The Highest Degree You Have Received? [id number] MIGRATION.300 345396 Information not available 06/25/2022 Have There Been Any Changes To Your Family Or Social Situation? No MIGRATION.030 537624 Information not available 06/25/2022 What Is The Fluoride Status Of Your Home? Unknown MIGRATION.300 416633 Information not available 06/25/2022 When Did You Quit Smoking? 14+yearssincelast cigarette MIGRATION.300026 Information not available 06/25/2022 Are There Any Guns Present In Your Home? Yes MIGRATION.030 306957 Information not available 06/25/2022 Do You Use Insect Repellent Routinely? No MIGRATION.0301 [id number] Information not available 06/25/2022 Where Do You Live? [facility] MIGRATION.0301 [id number] Information not available 06/25/2022 Do You Have A Medical Power Of Bingo Floater? No MIGRATION.0301 988240 Information not available 06/25/2022 What Was The Date Of Your Most Recent Tobacco Screening? 04/07/2023 [email or web address] Information not available 04/07/2023 What Is Your Relationship Status? MIGRATION.0301 747150 Information not available 06/25/2022 Do You Use Your Seat Belt Or Car Seat Routinely? Yes MIGRATION.0301 006727 Information not available 06/25/2022 Do You Have Smoke And Carbon Monoxide Detectors In Your Home? Yes MIGRATION.0301 771165 Information not available 06/25/2022 Are You Passively Exposed To Smoke? Yes MIGRATION.0301 746225 Information not available 06/25/2022 Are There Any Smokers In Your House? Yes Daughter Smokes In Garage MIGRATION.0301 015790 Information not available 06/25/2022 What Types Of Sporting Activities Do You Participate In? None MIGRATION.0301 669497 Information not available 06/25/2022 Do You Feel Stressed (tense, Restless, Nervous, Or Anxious, Or Unable To Sleep At Night)? [id number] MIGRATION.0301 031845 Information not available 06/25/2022 Do You Use Any Illicit Or Recreational Drugs? No MIGRATION.0301 043937 Information not available 06/25/2022 Do You Use Sunscreen Routinely? No MIGRATION.0301 100334 Information not available 06/25/2022 Has Tobacco Cessation Counseling Been Provided? No MIGRATION.0301 295510 Information not available 06/25/2022 Have You Recently Traveled Abroad? No MIGRATION.0301 754054 Information not available 06/25/2022 Do You Have Any Dietary Restrictions? No MIGRATION.0301 018293 Information not available 06/25/2022 Do You Or Have You Ever Used Any Other Forms Of Tobacco Or Nicotine? No MIGRATION.0301 691644 Information not available 06/25/2022 Sex: Male Functional Status Question Answer Note LastModified by Organizat ion Details LastModified Time Do you have difficulty walking or climbing stairs? No MIGRATION.6605108 026 Information not available 06/25/2022 Do you have transportation difficulties? No MIGRATION.1786099 026 Information not available 06/25/2022 Are you able to walk? YESWOREST MIGRATION.4998925 026 Information not available 06/25/2022 Do you have difficulty doing errands alone? No MIGRATION.2981614 026 Information not available 06/25/2022 Are you able to care for yourself? Yes MIGRATION.2868473 026 Information not available 06/25/2022 Do you have difficulty dressing or bathing? No MIGRATION.1723808 026 Information not available 06/25/2022 What is your exercise level? None MIGRATION.0074900 026 Information not available 06/25/2022 Mental Status Question Answer Note LastModified by Organizat ion Details LastModified Time Do you have difficulty concentrating, remembering or making decisions? No MIGRATION.[id number] 6 Information not available 06/25/2022 Family History Relationship Description Onset Age of this Age Resolved Age Notes LastModified by Organization Details LastModified Time Mother Hypertensive disorder MIGRATION.262 [id number] Not available 06/25/2022 05:55:54 Mother Cerebrovascu lar accident MIGRATION.142 2291946 Not available 06/25/2022 05:55:54 Mother Myocardial infarction MIGRATION.334 [id number] Not available 06/25/2022 05:55:54 Medical History Condition Response NERVE DISEASE N BLINDNESS N RHEUMATIC FEVER N KIDNEY STONES N BLADDER PROBLEMS N MRSA N OTHER # 1 N POLIO N LUNG DISEASE/DISORDER N HISTORY OF DRUG ABUSE N RADIATION / CHEMOTHERAPY N COPD N Other # 2 N BLOOD DISEASES N EAR OR HEARING PROBLEMS N MUMPS N SHINGLES N BOWEL PROBLEMS N DEPRESSION (INCLUDING POST ) N STROKE/TIA N ULCERS N BENIGN PROSTATIC HYPERPLASIA N MEASLES N HYPOTENSION N MYOCARDIAL INFARCTION N OBESITY N GERD/NAUSEA N ANEURYSM N URINARY/BLADDER/KIDNEY PROBLEMS N CORONARY ARTERY DISEASE (CAD) N ADDICTION CONCERNS N Impotence N ENDOMETRIOSIS N USE OF BLOOD THINNERS N SKIN PROBLEMS N GASTROINTESTINAL DISORDER N PERIPHERAL VASCULAR DISEASE N MUSCLE,JOINT OR BONE PROBLEMS N GASTROINTESTINAL BLEEDING N BLOOD CLOTS N ASTHMA N CATARACTS N ERECTILE DYSFUNCTION N VARICOSITIES N GI PROBLEMS N Low Testosterone N INFERTILITY N AIDS/HIV N CHEMOTHERAPY / RADIATION N LIVER DISEASE N MALE HYPOGONADISM N HYPERTENSION Y Deficiency N TOURETTE'S N ANXIETY DISORDER N BLOOD TRANSFUSION N ANEMIA/BLOOD DISORDER N CHRONIC EAR INFECTIONS N BRONCHITIS N TUBERCULOSIS N GLAUCOMA N FOOT PROBLEM N DIVERTICULITIS N SLEEP APNEA N CHICKENPOX N INFECTIOUS DISEASE N PROSTATE N HEART ARRHYTHMIA N INSOMNIA N HIGH CHOLESTEROL / HYPERLIPIDEMIA Y EYE PROBLEMS N HYPERTHYROIDISM N EDEMA N CHRONIC PAIN SYNDROME N HYPOTHYROIDISM N CONSTIPATION N CAROTID BLOCKAGE N BACK / NECK PROBLEMS N HAVE YOU BEEN HOSPITALIZED OR SEEN IN [facility] ER IN THE PAST YEAR ? N ATHEROSCLEROSIS N BREAST PROBLEMS N DIALYSIS N ECZEMA N OSTEOPOROSIS N ARTHRITIS N APPENDICITIS N DIABETES, TYPE N BAD TEETH N ENT N HEARTBURN / REFLUX N AUTISM SPECTRUM DISORDER (ASD) N HEPATITIS / LIVER DISEASE N GOUT N SLEEP DISORDER N ALZHEIMER'S DISEASE N Brain Problems N DEMENTIA N HERPES N SEIZURES/EPILEPSY N HEADACHES/MIGRAINES N VASCULAR DISEASE N PACEMAKER N Blood Disorder N DIZZINESS N HEART DISEASE/HEART PROBLEMS N KIDNEY DISEASE N MULTIPLE SCLEROSIS N CANCER: SPECIFY N CARDIAC ARRHYTHMIA N ATRIAL FIBRILLATION N Gall Stones N PULMONARY EMBOLISM N AUTOIMMUNE DISEASE N Immunizations Vaccine Type Date Status Note Provider Nam e and Address Organization Details Recorded Time tetanus toxoid, unspecified formulation 8 completed Not Available [facility] 04/11/2023 06:32:10 Past Encounters Encounter ID Performer Location Encounter Start Date Encounter Closed Date Diagnosis/Indication Diagnosis SNOMED-CT Code Diagnosis ICD10 Code Diagnosis Note [id number] [facility] [place] [address] 12/11/2020 00:00:00 12/31/2020 15:12:16 [id number] [facility] [place] [address] 01/08/2021 00:00:00 01/08/2021 23:23:10 [id number] [facility] Internal Med [address] [place] [address] 01/22/2021 00:00:00 02/10/2021 13:21:59 [id number] [facility] Internal Med [address] [place] [address] 02/05/2021 00:00:00 02/05/2021 22:12:27 [id number] [facility] Internal [place] [address] [facility] [address] , [place] [address] 06/04/2021 00:00:00 06/04/2021 22:42:00 [id number] [facility] Internal [place] [address] [place] [address] y , [place] [address] 10/03/2021 00:00:00 10/28/2021 12:12:26 [id number] [facility] Internal [place] [address] [place] [address] y , [place] [address] 01/30/2022 00:00:00 01/31/2022 10:56:08 [id number] [facility] [place] [address] [place] [address] y , [place] [address] 05/29/2022 00:00:00 05/29/2022 23:20:48 [id number] Alexis Washington MD [facility] Internal [place] [address] [place] [address] y , [place] [address] 12/02/2022 10:43:35 12/02/2022 12:13:20 Benign essential hypertension 9070631 I10 Pure hypercholesterolemia 975355160 E78.00 Osteoarthritis 185139109 M19.90 Permanent cardiac pacemaker [id number] 22085 Z95.0 [id number] Alexis Washington MD [facility] Internal [place] [address] [place] [address] [place] [address] 04/07/2023 10:34:50 04/07/2023 11:53:45 Benign essential hypertension 7270737 I10 Screening for malignant neoplasm of prostate 147848191 Z12.5 Osteoarthritis 527797520 M19.90 Permanent cardiac pacemaker 5188860316 92486 Z95.0 Pure hypercholesterolemia 884580968 E78.00 Health Concerns Section Related Observation LastModified by Organization Detai ls LastModified Time None Recorded Concern Status LastModified by Organization Details LastModified Time None Recorded Advance Directives Directive N: pt declined information Payers Encounter Date Sequence Insurance Name Policy Number Policy Lara Covered Member ID Lara Member ID Guarantor Name 12/02/2022 1 [place] Francisco Burden [id number] Francisco Wood [place]ath 12/02/2022 2 [facility] OPTION - PLAN F (MEDICARE SUPPLEMENT) PLAN F Francisco Burden [id number] Francisco Wood Creath 04/07/2023 1 [place] Francisco Janeath [id number] Francisco Wood Creath 04/07/2023 2 [facility] OPTION - PLAN F (MEDICARE SUPPLEMENT) PLAN F Francisco Burden [id number] Francisco Burden Notes Date Note Type Note Provider Name and Address Organization Details Recorded Time 3 text/html Hypertension no headache no dizzinessDyslipidemia does try to follow dietOsteoarthritis stable using some TylenolCardiac pacemaker in place no complaints Alexis Washington MD [address], [place], [address], [employer] 12/14/2022 21:29:59 3 text/html Hypertension no headache no dizzinessDyslipidemia does try to follow dietOsteoarthritis stable using some TylenolCardiac pacemaker in place no complaints Alexis Washington MD [address], [place], [address], [employer] 04/07/2023 23:03:48
== END 2024-08-18 11:38 | disposition home or self-care (01) ==
PROVIDERS: PCP Internal Medicine; Visit Provider Internal Medicine
DX: I10 Essential (primary) hypertension (principal)
CPT/HCPCS: 36415; 80053; 80061; 85025

== ENCOUNTER 2024-12-15 11:00 | Outpatient (CLI) | payer MEDICARE, SELFPAY ==
[2024-12-15 11:38] LABS: Hematocrit 36.4 % (42.0-52.0); Hemoglobin 11.5 g/dL (14.0-18.0); Immature Granulocyte Percent A 0.2 % (0-0.5); Lymphocytes Absolute Auto 1.25 K/mm3 (0.9-3.2); Mean Corpuscular HGB Conc 31.6 g/dl (32-36); Mean Corpuscular Hemoglobin 29.3 pg (26-34); Mean Corpuscular Volume 92.9 fl (80-100); Nucleated Red Blood Cells Absolute Auto 0.000 K/mm3 (0.0-0.012); Nucleated Red Blood Cells Perc 0.0 % (0.0-0.2); Platelet Count Result 173 k/mm3 (150-375); Red Blood Count 3.92 M/mm3 (4.6-6.20); White Blood Count 5.0 K/mm3 (4.5-10.0)
--- OUTSIDE RECORDS SUMMARY | 2024-12-15 11:47 | XMS_ITS | Encounter Summary ---
Author Organization [facility] Address [address] [facility] [address] [place] [address] Care Team Providers Care Foreign Exchange Student Coordinator Name Role Phone Alexis Washington MD Primary Care Provider [phone] Encounter Details Date Type Department Care Team (Late st Contact Info) Description 08/19/2016 Orders Only [facility] ProviderNancy MD [address] [place], [place] [id number] Social History Tobacco Use Types Packs/Day Years Used Date Smoking Tobacco: Former Cigarettes Q uit: 04/27/1980 Alcohol Use Standard Drinks/Week Comments No 0 (1 standard drink = 0.6 oz pur e alcohol) Sex and Gender Information Value Date Recorded Sex Assigned at Not on file 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
--- OUTSIDE RECORDS SUMMARY | 2024-12-15 11:47 | XMS_ITS | Encounter Summary ---
Author Organization [facility] Address [address] [facility] [address] [place] [address] Care Team Providers Care Protein Purification Scientist Name Role Phone Alexis Washington MD Primary Care Provider [phone] Encounter Details Date Type Department Care Team (Late st Contact Info) Description 05/13/2016 Orders Only [facility] ProviderNancy MD [address] [place], [place] [phone] Social History Tobacco Use Types Packs/Day Years Used Date Smoking Tobacco: Former Cigarettes Q uit: 04/27/1980 Alcohol Use Standard Drinks/Week Comments No 0 (1 standard drink = 0.6 oz pur e alcohol) Sex and Gender Information Value Date Recorded Sex Assigned at Not on file 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
--- OUTSIDE RECORDS SUMMARY | 2024-12-15 11:47 | XMS_ITS | Clinical Summary ---
Author Organization [facility] Address [address] [place] [id number] Care Team Providers Care Guest Associate Name Role Phone Alexis Washington MD Primary Care Provider Allergies Active Allergy Reactions Criticality Noted Date [...] Encounters Date Type Department Care Team Description 09/27/2024 8:45 AM CDT Ancillary Procedure [facility] Cardiology [address] [facility] [address], [place] [address] Cardiac pacemaker in situ (Primary Dx); Complete heart block (HCC); SSS (sick sinus syndrome) (HCC); Ventricular tachycardia (HCC) from Last 3 Months Medical History Medical [...] on file 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 Gender Identity Not on file Sexual Orientation Not on file Obstetrics History Last Filed Vital Signs Vital Sign Reading Time Taken Comments Blood Pressure 128/80 06/20/2024 11:23 AM WELDING ROBOT OPERATOR Pulse 88 06/20/2024 11:23 AM WELDING ROBOT OPERATOR Temperature 36.3 C (97.3 F) 04/12/2020 10:10 AM WELDING ROBOT OPERATOR Respiratory Rate 18 01/28/2017 9:34 AM CDT Oxygen Saturation 98% 06/20/2024 11:23 AM WELDING ROBOT OPERATOR Inhaled Oxygen Concentration - - Weight 81.6 kg (180 lb) 06/20/2024 3:14 PM WELDING ROBOT OPERATOR Height 182.9 cm (6') 06/20/2024 3:14 PM WELDING ROBOT OPERATOR Body Mass Index 24.41 06/20/2024 3:14 PM WELDING ROBOT OPERATOR Plan of Treatment Health Maintenance Due Date Last Done Comments Depression Screening 1948 Fall Risk Assessment 1950 Hepatitis C Screening 1950 DTaP/Tdap/Td Vaccine (1 - Tdap) 11/06/1959 Hepatitis B Screening 1966 Pneumococcal vaccine 65+ (1 of 1 - PCV) 1998 Zoster Vaccine (1 of 2) 1998 Abdominal Aortic Aneurysm (AAA) Screen 2013 Well Visit 65+ 2013 Influenza Vaccine (#1) 2024 Medical Devices Implanted Type Area Animation Artist Device Identifier Shelf Expiration Date Model / Serial / Lot Pacemaker-2012 Implanted:050 09/2012 by Alexis Barrios MD (Quantity not on file) Pacemaker Chest [employer] AV Block, SSS, Afib LIBBY BALDWIN / [id number] / Procedures Procedure Name Priority Date/Time Associated Diagnosis Comments DEVICE CHECK - REMOTE Routine 09/29/2024 4:18 PM CDT Complete heart block (HCC) SSS (sick sinus syndrome) (HCC) Ventricular tachycardia (HCC) from Last 3 Months Results * DEVICE CHECK - REMOTE (09/29/2024 4:18 PM CDT) Anatomical Region Laterality Modality Other Narrative 12/05/2024 7:35 AM CDT [employer] Edora Dual Pacemaker Dx; AV Block, SSS, Afib DOI 11/07/2022-Sophie. Chronic leads 08/30/2012. [employer] remote home monitor Q3 mo, Office pacer checks Q1 yr. Routine DDD CLS Pacemaker Remote. Transmission attached. Battery status: OK, 85% remaining battery life to DANITA. Stable lead impedances, pacing and sensing thresholds. Presenting rhythm: AP/SENIOR WINDOWS ADMINISTRATOR AP-75%, SENIOR WINDOWS ADMINISTRATOR-97% No AT/AF episodes noted. No Ventricular high rate episodes detected. Medications: ASA 325 mg, Toprol-XL 25 mg See scanned report. Office pacemaker follow up: 03/15/25 [employer] remote f/u 12/27/24. Leandro Herrera, RN Alexis Barrios MD [facility] PROC EDURES Final Result from Last 3 Months Insurance [facility] MEDICARE MEDICARE [facility] MEDICARE AARP Care Teams Guest Associate Relationship Specialty Start Date End Date Alexis Washington MD PCP - General 01/11/15
--- OUTSIDE RECORDS SUMMARY | 2024-12-15 11:47 | XMS_ITS | Clinical Summary ---
Author Organization [facility] Address [facility] [place] [address] Care Team Providers Care Sales Apprentice Name Role Phone Unavailable Primary Care Provider Unavailabl e Social History Tobacco Use Types Packs/Day Years Used Date Smoking Tobacco: Never Assessed Sex and Gender Information Value Date Recorded Sex Assigned at Not on file Legal Sex Male 5:11 PM CDT Gender Identity Not on file Sexual Orientation Not on file Plan of Treatment Health Maintenance Due Date Last Done Comments Hepatitis C 1966 DTaP, Tdap and Td [...]
[2024-12-15 12:02] LABS: Alanine Aminotransferase 16 U/L (6-50); Albumin Level 4.5 g/dL (3.5-5.1); Alkaline Phosphatase 74 U/L (38-126); Anion Gap 7 mmol/L (4-12); Aspartate Amino Transferase 29 U/L (17-59); Bilirubin,Total 1.0 mg/dL (0.2-1.3); Blood Urea Nitrogen 24 mg/dL (9-20); Calcium 9.9 mg/dL (8.4-10.2); Carbon Dioxide 29 mmol/L (22-30); Chloride 105 mmol/L (98-107); Cholesterol 127 mg/dL (0-200); Estimated Glomerular Filt Rate > 60; Glucose 93 mg/dL (65-110); HDL Direct 60 mg/dL; Potassium 4.2 mmol/L (3.4-5.0); Sodium 141 mmol/L (137-145); Total Protein 7.8 g/dL (6.3-8.2); Triglycerides 47 mg/dL (<150)
== END 2024-12-15 11:01 | disposition home or self-care (01) ==
LOC: ANHLAB 11:04
PROVIDERS: PCP Internal Medicine; Visit Provider Internal Medicine
DX: E78.5 Hyperlipidemia, unspecified (principal)
CPT/HCPCS: 36415; 80053; 80061; 85025